=== PATIENT | female | born 1960 | race Caucasian/White ===

== ENCOUNTER 2020-02-11 03:39 | Inpatient (IN) | payer BC, OTHER, SELFPAY ==
[~2020-02-11] VITALS: Ht 182.9 cm; Wt 126.5 kg
[2020-02-11] MEDS ORDERED: DEXTROSE 50% 50 ML SYRINGE IV PRN (04:15)
[2020-02-11] MEDS ORDERED: GLUCAGON INJ 1MG VIAL SC PRN (04:15)
[2020-02-11] MEDS ORDERED: GLUCOSE 4GM CHEW TABLET PO PRN (04:15)
[2020-02-11 08:30] VITALS: BP 171/78
[2020-02-11] MEDS ORDERED: LEVEMIR (INSULIN DETEMIR) 1 UNITS/0.01ML SC SCH (09:00)
[2020-02-11 10:05] LABS: BASO % 0.3 % (0.0-1.0); HEMATOCRIT 38.9 % (36.0-47.0); HEMOGLOBIN 12.2 g/dl (12.0-15.5); LYMPH # 0.3 10^3/uL (1.5-5.0); LYMPH % 7.9 % (24.0-44.0); MEAN CORPUSCULAR HEMOGLOBIN 25.5 pg (27.0-33.0); MEAN CORPUSCULAR HGB CONC 31.4 g/dl (32.0-36.5); MEAN CORPUSCULAR VOLUME 81.2 fl (80.0-96.0); MONO # 0.1 10^3/uL (0.0-0.8); MONO % 3.5 % (0.0-5.0); NEUTROPHILS # 2.8 10^3/uL (1.5-8.5); NEUTROPHILS % 87.7 % (36.0-66.0); PLATELET COUNT, AUTOMATED 214 10^3/uL (150-450); RED BLOOD COUNT 4.79 10^6/uL (4.00-5.40); WHITE BLOOD COUNT 3.2 10^3/uL (4.0-10.0)
[2020-02-11 10:19] LABS: INR 1.04; PROTHROMBIN TIME 13.8 SECONDS (12.5-14.3)
[2020-02-11 10:20] LABS: PARTIAL THROMBOPLASTIN TIME 27.9 SECONDS (24.2-38.5)
[2020-02-11 10:23] LABS: D-DIMER QUANT 1798.29 ng/ml (<500)
[2020-02-11] MEDS ORDERED: PRED20TA PO (10:32)
[2020-02-11] MEDS ORDERED: DIOV160T6 PO (10:32)
[2020-02-11] MEDS ORDERED: METF10004 PO (10:32)
[2020-02-11] MEDS ORDERED: FURO20TA2 PO (10:32)
[2020-02-11] MEDS ORDERED: PANT40TA29 PO (10:32)
[2020-02-11] MEDS ORDERED: AMIT100TA PO (10:32)
[2020-02-11] MEDS ORDERED: TOUJ1.2I SC (10:32)
[2020-02-11] MEDS ORDERED: TRUL0.5I SC (10:32)
[2020-02-11] MEDS ORDERED: LOSA100T50 PO (11:19)
[2020-02-11] MEDS ORDERED: PRED10TA2 PO (11:19)
[2020-02-11] MEDS ORDERED: FURO40TA2 PO (11:19)
[2020-02-11] MEDS ORDERED: AMIT75TA PO (11:19)
[2020-02-11] MEDS: HumaLOG INSULIN (NovoLOG) PER UNIT SC SCH ×4 (11:44→21:13)
[2020-02-11 12:00] VITALS: BP 171/80
[2020-02-11] MEDS ORDERED: DOXYCYCLINE HYCLATE 100 MG in D5W MINI-BAG PLUS 100 ML IV SCH (12:00)
[2020-02-11 12:19] LABS: APPEARANCE, URINE CLEAR (CLEAR); BACTERIA, URINE AUTO NEGATIVE (NEGATIVE); BILIRUBIN, URINE AUTO NEGATIVE (NEGATIVE); BLOOD, URINE BLOOD NEGATIVE (NEGATIVE); COLOR, URINE YELLOW (YELLOW); GLUCOSE, URINE (UA) AUTO 3+ mg/dL (NEGATIVE); KETONE, URINE AUTO 2+ mg/dL (NEGATIVE); LEUKOCYTE ESTERASE, URINE AUTO NEGATIVE (NEGATIVE); NITRITE, URINE AUTO NEGATIVE (NEGATIVE); PROTEIN, URINE AUTO NEGATIVE (NEGATIVE); RBC, URINE AUTO 0 /HPF (0-3); SPECIFIC GRAVITY URINE AUTO 1.036 (1.002-1.035); SQUAMOUS EPITHELIAL CELL UR AU 2 /HPF (0-6); UROBILINOGEN, URINE AUTO 0.2 mg/dL (0.0-2.0); WBC, URINE AUTO 4 /HPF (0-3)
[2020-02-11 13:01] LABS: ALBUMIN 2.7 GM/DL (3.2-5.2); ALT/SGPT 23 U/L (12-78); BILIRUBIN,DIRECT 0.2 MG/DL (0.0-0.2); BILIRUBIN,TOTAL 0.5 MG/DL (0.2-1.0); BLOOD UREA NITROGEN 12 MG/DL (7-18); CALCIUM LEVEL 7.7 MG/DL (8.8-10.2); CARBON DIOXIDE LEVEL 21 MEQ/L (21-32); CHLORIDE LEVEL 105 MEQ/L (98-107); CK-MB VALUE MASS < 1.0 NG/ML (<3.6); CPK CREATINE PHOSPHOKINASE 48 U/L (26-192); CREATININE FOR GFR 0.76 MG/DL (0.55-1.30); FERRITIN 177 NG/ML (8-252); GLOMERULAR FILTRATION RATE > 60.0 (>45); GLUCOSE, FASTING 402 MG/DL (70-100); LDH LACTATE DEHYDROGENASE 490 U/L (84-246); MAGNESIUM LEVEL 1.9 MG/DL (1.8-2.4); MB/CK RELATIVE INDEX 2.08 (< OR =4); NT-PRO BNP 412 PG/ML (<125); POTASSIUM SERUM 3.3 MEQ/L (3.5-5.1); SODIUM LEVEL 140 MEQ/L (136-145); TOTAL PROTEIN 6.2 GM/DL (6.4-8.2); TRIGLYCERIDES LEVEL 148 MG/DL (<150); TROPONIN I < 0.02 NG/ML (< 0.10)
[2020-02-11] MEDS: ENOXAPARIN 40MG/0.4ML SYRINGE (J1650 PER 10MG) SC SCH (13:24)
[2020-02-11] MEDS: LOSARTAN 50MG TABLET PO SCH (13:26)
[2020-02-11] MEDS: PANTOPRAZOLE 40MG TAB (PROTONIX) PO SCH (13:26)
[2020-02-11] MEDS ORDERED: SODIUM CHLORIDE 0.9% INJ 10 ML SYR IV ONE (15:00)
--- NOTE | 2020-02-11 15:05 | HPEPDOC ---
General Date of Admission Feb 11, 2020 at 08:30 Date of Service: Feb 11, 2020 Attending Physician: VIDYA HAMMER DO Chief Complaint The patient is a 59-year-old female admitted with a reason for visit of Covid 19. History of Present Illness Mrs. Rojas is a 59-year-old female with diabetes mellitus type 2, systolic CHF, and history of pulmonary embolus in 2019 who is here for worsening dyspnea and found to have COVID pneumonia. 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 She was initially negative on 02/01/2020. She is tested positive for COVID on 02/04/2020 and on 02/08/2020. First time she tested positive, chest x-ray demonstrated ground glass infiltrates. She self isolated. The second time she tested positive, she returned to the ED for worsening dyspnea. CT of the chest demonstrated ground glass infiltrates bilaterally and she was hypoxic requiring 5 L of oxygen to maintain saturations above 90%. She was transferred to [facility], [place] While here, she required Vapotherm. She tells me she still dyspneic. Denies fever, abdominal pain, diarrhea, or dysuria. Home Medications Scheduled Amitriptyline HCl (Amitriptyline HCl) 75 Mg Tablet, 150 MG PO QHS, (Reported) Furosemide (Furosemide) 40 Mg Tablet, 40 MG PO DAILY, (Reported) Insulin Glargine,Hum.rec.anlog (Toujeo Solostar) 300 Unit/1 Ml Insuln.pen, 40 UNIT SC BID, (Reported) GETS SAMPLES FROM HER PCP, NOT FILLED AT [facility] Losartan Potassium (Losartan Potassium) 100 Mg Tablet, 100 MG PO DAILY, (Reported) Metformin HCl (Metformin HCl) 1,000 Mg Tablet, 1,000 MG PO DAILY, (Reported) SUPPER Pantoprazole Sodium (Pantoprazole Sodium) 40 Mg Tablet.dr, 40 MG PO DAILY, (Reported) Prednisone (Prednisone) 10 Mg Tablet, 10 MG PO DAILY, (Reported) Allergies Coded Allergies: No Known Allergies (Verified Allergy, Unknown, 02/11/20) Past Medical History Medical History 1. Systolic CHF 2. Hypertension 3. Dyslipidemia 4. Insulin-dependent diabetes mellitus type 2 5. History of pulmonary embolism 6. Depression 7. GERD Surgical History 1. Cholecystectomy 2. Appendectomy 3. Breast biopsy and lumpectomy 4. 3 5. Skin cancer removal 6. Left tib/fib ORIF Family History Mother: History of coronary disease Social History * Smoker: Denies Alcohol: Denies Drugs: denies A-FIB/CHADSVASC A-FIB History Current/History of A-Fib/PAF?: No Review of Systems Constitutional: Denies: Chills, Fever Eyes: Denies: Vision change ENT: Denies: Sore Throat Skin: Denies: Rash Pulmonary: Reports: Dyspnea Cardiovascular: Denies: Lt Headedness Gastrointestinal: Denies: Abdominal Pain, Diarrhea Genitourinary: Denies: Dysuria Hematologic: Denies: Bruising Neurological: Denies: Change in speech Physical Examination General Exam: Positive: Alert, Cooperative Eye Exam: Positive: EOMI; Negative: Sclera icteric ENT Exam: Positive: Atraumatic Neck Exam: Positive: Supple Chest Exam: Positive: Diminished Heart Exam: Positive: Rate Normal, Regular Rhythm Abdomen Exam: Positive: Normal bowel sounds, Soft; Negative: Tenderness Extremity Exam: Negative: Edema Neuro Exam: Positive: Cranial Nerves 3-12 NL Psych Exam: Positive: Mental status NL, Mood NL Vital Signs Vital Signs Date Time Temp Pulse Resp B/P (MAP) Pulse Ox O2 Delivery O2 Flow Rate FiO2 02/11/20 12:00 98.0 93 27 171/80 (110) 91 HVNI-Vapotherm 35.0 50 Laboratory Data Labs 24H Laboratory Tests 2 02/11/20 09:35: Immature Granulocyte % (Auto) 0.6, Neutrophils (%) (Auto) 87.7H, Lymphocytes (%) (Auto) 7.9L, Monocytes (%) (Auto) 3.5, Eosinophils (%) (Auto) 0.0, Basophils (%) (Auto) 0.3, Neutrophils # (Auto) 2.8, Lymphocytes # (Auto) 0.3L, Monocytes # (Auto) 0.1, Eosinophils # (Auto) 0.0, Basophils # (Auto) 0.0, Nucleated Red Blood Cells % (auto) 0.0, Prothrombin Time 13.8, Prothromb Time International Ratio 1.04, Activated Partial Thromboplast Time 27.9, Fibrinogen 667H, D-Dimer, Quantitative 1798.29H, Anion Gap 14, Glomerular Filtration Rate > 60.0, Calcium Level 7.7L, Magnesium Level 1.9, Ferritin 177, Total Bilirubin 0.5, Direct Bilirubin 0.2, Aspartate Amino Transf (AST/SGOT) 30, Alanine Aminotransferase (ALT/SGPT) 23, Alkaline Phosphatase 87, Lactate Dehydrogenase 490H, Total Creatine Kinase 48, Creatine Kinase MB < 1.0, Creatine Kinase MB Relative Index 2.08, Troponin I < 0.02, C-Reactive Protein, Quantitative 14.50H, IB-Vrp-A-Type Natriuretic Peptide 412H, Total Protein 6.2L, Albumin 2.7L, Albumin/Globulin Ratio 0.8L, Triglycerides Level 148 02/11/20 09:36: Lactic Acid Level 1.6 02/11/20 11:39: Bedside Glucose (Misc Panel) 373H 02/11/20 12:06: Urine Color YELLOW, Urine Appearance CLEAR, Urine pH 6.0, Urine Specific [place] 1.036, Urine Protein NEGATIVE, Urine Glucose (Auto)(UA) 3+H, Urine Ketones (Auto) 2+H, Urine Blood NEGATIVE, Urine Nitrite NEGATIVE, Urine Bilirubin NEGATIVE, Urine Urobilinogen 0.2, Urine Leukocyte Esterase (Auto) NEGATIVE, Urine WBC (Auto) 4H, Urine RBC (Auto) 0, Urine Hyaline Casts (Auto) 0, Urine Bacteria (Auto) NEGATIVE, Urine Squamous Epithelial Cells 2, Urine Sperm (Auto) CBC/BMP Laboratory Tests 02/11/20 09:35 Assessment/Plan Mrs. Rojas is a 59-year-old female with diabetes mellitus type 2, systolic CHF, and history of pulmonary embolus in 2019 who is here for worsening dyspnea and found to have COVID pneumonia. On arrival, her oxygen requirements increased from 5L O2 to Vapotherm. She will be on IV steroids, Remdesivir, and doxycycline. She will be given Ceftriaxone to cover for bacterial pneumonia, but if procalcitonin is negative, we will discontinue it. Plan / VTE VTE Prophylaxis Ordered?: Yes Plan Plan 1. Acute hypoxic respiratory failure Secondary to COVID pneumonia Initially positive on 02/04/2020 Requiring Vapotherm at this time Continue to follow infiltrate markers space (ESR, CRP, ferritin, LDH, f ibrinogen, d-dimer) Check pro-calcitonin Continue with dexamethasone, doxycycline, and Remdesivir 2. Chronic systolic CHF Does not appear to be fluid overloaded Hold furosemide 3. Hypertension Blood pressure elevated. She has not taken her blood pressure medication today Continue losartan 4. Insulin-dependent diabetes mellitus type 2 Carbohydrate consistent diet and insulin sliding scale Adjust long acting insulin from 40 units twice a day to 20 units twice a day. Increase as needed 5. Depression Continue with amitriptyline 6. GERD Continue with pantoprazole 7. DVT prophylaxis Lovenox Disposition: Pending improvement in respiratory status. Currently on Vapotherm VIDYA HAMMER DO Feb 11, 2020 15:05
[2020-02-11 16:00] VITALS: BP 162/78
[2020-02-11 16:12] LABS: ABG HCO3 21.7 MEQ/L (22.0-26.0); ABG O2 SATURATION 94.2 % (95.0-99.0); ABG PARTIAL PRESSURE CO2 29.9 mmHg (35.0-45.0); ABG PARTIAL PRESSURE O2 64.9 mmHg (75.0-100.0); ABG STANDARD HCO3 23.6 MEQ/L (22.0-26.0); ABG TOTAL CO2 22.6 MEQ/L (23.0-31.0); ABG pH (ARTERIAL) 7.478 UNITS (7.350-7.450)
[2020-02-11] MEDS ORDERED: ISOVUE-370 76% 100ML VIAL As Ordered ONE (18:13)
--- NOTE | 2020-02-11 20:45 | REPVR ---
PROCEDURE INFORMATION: Exam: CT Angiography Chest With Contrast Exam date and time: 02/11/2020 7:46 PM Age: 59 years old Clinical indication: Hypoxia, hypercoagulable, history of PE last year TECHNIQUE: Imaging protocol: Computed tomographic angiography of the chest with intravenous contrast. 3D rendering (Not supervised by radiologist): MIP and/or 3D reconstructed images were created by the technologist. Radiation optimization: All CT scans at this facility use at least one of these dose optimization techniques: automated exposure control; mA and/or kV adjustment per patient size (includes targeted exams where dose is matched to clinical indication); or iterative reconstruction. Contrast material: ISOVUE 370; Contrast volume: 75 ml; Contrast route: INTRAVENOUS (IV); COMPARISON: No relevant prior studies available. FINDINGS: Limitations: Respiratory motion artifact degrades the image quality. Pulmonary arteries: There is no pulmonary embolism in the main, lobar, or segmental pulmonary arteries. There is suboptimal for the assessment of the subsegmental pulmonary arteries, which are degraded by respiratory motion artifact. Aorta: The thoracic aorta is intact and patent. There is no thoracic aortic aneurysm, pseudoaneurysm, penetrating atherosclerotic ulcer, intramural hematoma, or dissection. Great vessels off aortic arch: The brachiocephalic artery, imaged proximal portions of the common carotid arteries, imaged proximal portions of the vertebral arteries, and subclavian arteries are intact. No stenosis or occlusion of these vessels is noted. Thyroid: There is a 1.5 cm heterogeneous solid nodule containing a calcification in the mid to lower pole of the right lobe of the thyroid gland and a 1.8 cm cystic nodule in the mid to lower pole of the left lobe of the thyroid gland. No enlargement of the thyroid gland is noted. Tracheobronchial tree: Intact and patent. Lungs: There are diffuse ground-glass opacities with superimposed consolidation and intralobular septal thickening (?crazy-paving?) in both lungs. No cavitary lesion is noted. There is a 6 mm calcified granuloma in the right lower lobe. Pleural space: Normal. No pneumothorax or pleural effusion. Heart: The left atrium is dilated. The ratio of the diameter of the right ventricle to the diameter of the left ventricle measures less than 1, which is within normal limits and there is no CT evidence for a right ventricular strain. Lymph nodes: There are subcentimeter mediastinal lymph nodes. However, no abnormally enlarged lymph nodes measuring greater than 1 cm in short axis are noted. Liver: There are calcified granulomas in the liver. The liver is of lower attenuation compared to the spleen, which can be seen with fatty liver infiltration. The liver was not fully imaged. Spleen: There are calcified granulomas in the spleen. The spleen was not fully imaged. Stomach and bowel: Postoperative changes are noted from a gastric bypass surgery. Bones/joints: There is no fracture or dislocation. No suspicious osteolytic or osteoblastic lesion. There are degenerative changes involving the thoracic spine. There is severe osteoarthritis of both glenohumeral joints. There are several ossified bodies in the left subcoracoid recess. Soft tissues: Unremarkable. No soft tissue fluid collection. IMPRESSION: 1. No pulmonary embolism in the main, lobar, or segmental pulmonary arteries. There is suboptimal for the assessment of the subsegmental pulmonary arteries, which are degraded by respiratory motion artifact. 2. Diffuse ground-glass opacities with superimposed consolidation and intralobular septal thickening (?crazy-paving?) in both lungs. Imaging features can be seen with COVID-19 pneumonia, though are nonspecific and can occur with a variety of infectious and noninfectious processes. (Reference: Nasim) 3. Thyroid nodules measuring up to 1.8 cm. See management guidelines below. COMMENTS: Consistent with the [place] [employer]'s Incidental Findings Committee white paper (J Am David Radiol 2015): In patients aged 35 years and older with an incidental thyroid nodule equal to or greater than 1.[address], MRI or extrathyroidal US, further evaluation with dedicated thyroid US is recommended for patients with normal life expectancy and without comorbidities. For smaller nodules without suspicious features, no further evaluation or follow up is recommended. REFERENCES: Nasim Corrales et al., Radiological Society of [place] Expert Consensus Statement on Reporting Chest CT Findings Related to COVID-19. Endorsed by the Society of Thoracic Radiology, the [place] [employer], and RSNA. Published June 01, 2019. Electronically signed by: Shar Marroquin On 02/11/2020 20:46:05 PM
[2020-02-11 21:05] VITALS: BP 154/62
[2020-02-11] MEDS: AMITRIPTYLINE 50 MG TAB PO SCH (21:11)
[2020-02-11] MEDS: DOXYCYCLINE HYCLATE 100MG TABLET PO SCH (21:11)
[2020-02-11] MEDS: LEVEMIR (INSULIN DETEMIR) 1 UNITS/0.01ML SC SCH (21:12)
[2020-02-12] VITALS: BP 152/69
[2020-02-12] MEDS: dexameTHASONE 4 MG/ML 1ML VIAL (J1100 PER 1MG) IV SCH ×2 (00:52→23:53)
[2020-02-12] MEDS: cefTRIAXone SOD 1 GM in D5W MINI-BAG PLUS 50 ML IV SCH ×2 (00:54→23:53)
[2020-02-12 04:00] VITALS: BP 156/77
[2020-02-12 06:28] LABS: HEMATOCRIT 37.5 % (36.0-47.0); HEMOGLOBIN 11.7 g/dl (12.0-15.5); LYMPH # 0.5 10^3/uL (1.5-5.0); MEAN CORPUSCULAR HEMOGLOBIN 25.3 pg (27.0-33.0); MEAN CORPUSCULAR HGB CONC 31.2 g/dl (32.0-36.5); MEAN CORPUSCULAR VOLUME 81.2 fl (80.0-96.0); MONO # 0.2 10^3/uL (0.0-0.8); MONO % 3.6 % (0.0-5.0); NEUTROPHILS # 5.9 10^3/uL (1.5-8.5); NEUTROPHILS % 89.1 % (36.0-66.0); PLATELET COUNT, AUTOMATED 218 10^3/uL (150-450); RED BLOOD COUNT 4.62 10^6/uL (4.00-5.40); WHITE BLOOD COUNT 6.6 10^3/uL (4.0-10.0)
[2020-02-12 06:44] LABS: INR 1.04; PROTHROMBIN TIME 13.8 SECONDS (12.5-14.3)
[2020-02-12 06:45] LABS: PARTIAL THROMBOPLASTIN TIME 25.7 SECONDS (24.2-38.5)
[2020-02-12 07:01] LABS: ALBUMIN 2.5 GM/DL (3.2-5.2); ALT/SGPT 23 U/L (12-78); BILIRUBIN,DIRECT 0.2 MG/DL (0.0-0.2); BILIRUBIN,TOTAL 0.3 MG/DL (0.2-1.0); BLOOD UREA NITROGEN 19 MG/DL (7-18); CALCIUM LEVEL 7.6 MG/DL (8.8-10.2); CARBON DIOXIDE LEVEL 27 MEQ/L (21-32); CHLORIDE LEVEL 107 MEQ/L (98-107); FERRITIN 183 NG/ML (8-252); GLOMERULAR FILTRATION RATE > 60.0 (>45); GLUCOSE, FASTING 263 MG/DL (70-100); MAGNESIUM LEVEL 2.1 MG/DL (1.8-2.4); POTASSIUM SERUM 3.3 MEQ/L (3.5-5.1); SODIUM LEVEL 142 MEQ/L (136-145); TOTAL PROTEIN 5.7 GM/DL (6.4-8.2); TROPONIN I 0.02 NG/ML (< 0.10)
[2020-02-12 08:00] VITALS: BP 169/72
[2020-02-12] MEDS ORDERED: POTASSIUM CHLORIDE 10 MEQ SR TABLET PO ONE (09:00)
[2020-02-12] MEDS: HumaLOG INSULIN (NovoLOG) PER UNIT SC SCH ×4 (09:37→20:34)
[2020-02-12] MEDS: DOXYCYCLINE HYCLATE 100MG TABLET PO SCH ×2 (09:37→20:35)
[2020-02-12] MEDS: PANTOPRAZOLE 40MG TAB (PROTONIX) PO SCH (09:37)
[2020-02-12] MEDS: LEVEMIR (INSULIN DETEMIR) 1 UNITS/0.01ML SC SCH ×2 (09:37→20:34)
[2020-02-12] MEDS: ENOXAPARIN 40MG/0.4ML SYRINGE (J1650 PER 10MG) SC SCH (09:38)
[2020-02-12] MEDS: LOSARTAN 50MG TABLET PO SCH (09:38)
[2020-02-12] MEDS ORDERED: ALBUTEROL 90 MCG/ACT 8GM HFA INHALER INH PRN (10:15)
[2020-02-12 12:00] VITALS: BP 169/72
--- NOTE | 2020-02-12 12:22 | CR ---
CONSULTATION Telemedicine consult. CHIEF COMPLAINT: Dyspnea. HISTORY OF PRESENT ILLNESS: Miss Rojas is a 59-year-old female with a past medical history of diabetes, CHF, hypertension, hyperlipidemia, previous history of PE in 2019 who presented with complaints of worsening shortness of breath and dyspnea. History of was obtained from the chart and other collateral information. The patient works as an RN at [employer] and had previously been tested for COVID 19 multiple times. She was negative when tested on 02/01/2020 and then on 02/04/2020 was found to be COVID positive as well as when tested again on 02/08/2020. After her first positive test in the end of January, the patient reportedly had a chest x-ray which showed ground glass opacities. She was self-isolating. However, a few days later, she had worsening shortness of breath and presented to the ED where she was tested a second time and was found to still be positive. Her CT at that time showed evidence of ground-glass opacities bilaterally and she was hypoxic requiring five liters nasal cannula oxygen supplementation. She was therefore transferred to [facility] for further evaluation and treatment. Here, the patient has continued to have significant hypoxia and was placed on Vapotherm for high flow nasal cannula oxygen. She was also started on dexamethasone and remdesivir during her admission. The patient was also given initial antibiotics for a possible superimposed pneumonia with ceftriaxone as well as doxycycline. MEDICAL AND SURGICAL HISTORY: 1. CHF. 2. Hypertension. 3. Hyperlipidemia. 4. Insulin dependent diabetes. 5. Prior history of PE in 2019. 6. Depression. 7. GERD. 8. Cholecystectomy. 9. Appendectomy. 10. Breast biopsy. 11. Lumpectomy. 12. section. 13. Skin cancer removal,. 14. Left tib/fib ORIF. FAMILY HISTORY: Mother with history of coronary artery disease. SOCIAL HISTORY: She denies previous history of smoking, alcohol or other drug use. HOME MEDICATIONS: 1. Amitriptyline. 2. Furosemide. 3. Insulin. 4. Losartan. 5. Metformin. 6. Pantoprazole. 7. Prednisone 10 mg daily. VITALS: Temperature 98, pulse 90, respirations 22, blood pressure 109/72. O2 sat 98 to 93% on Vapotherm at 40 liters a minute with 85% FiO2, in 910 mL, out 800 mL. LABORATORY DATA: WBC 6.6, hemoglobin 11.7, platelets of 218. Chemistries: Sodium is 142. Potassium is 3.3. Chloride is 107. Bicarb is 27, BUN 19. Creatinine is 0.70. Glucose is 263. Lactic acid initially was 1.6. Calcium is 7.6. Ferritin is 183.AST, ALT within normal limits. All phos is within normal limits. Troponins are negative x3. BNP on admission 412, albumin 2.5. D-dimer on admission 1798 and INR is 1.04, fibrinogen 67. ABG on admission: pH 7.478, pCO2 of 29.9, pO2 of 64.9. IMAGING: CT angio on 02/11/20 showed no evidence of pulmonary embolism in the main pulmonary arteries. There is significant respiratory motion and suboptimal evaluation of the subsegmental pulmonary arteries. The pulmonary artery appears enlarged compared to the aorta and while the right ventricle to left ventricle size does not show dilation, there appears to be some possible finding of the intraventricular septum. There is cardiomegaly. In the lung alvarez, there are diffuse ground-glass as well as denser consolidations bilaterally with intralobular septal thickening and this wrapped along in both the upper, mid and lower lobes. There is a granuloma in the right lower lobe. There are no significantly enlarged mediastinal lymph nodes. There are granulomas in the liver and the liver contour appears somewhat nodular on my review. There are granulomas in the spleen consistent with previous granulomatous disease. There is also incidentally noted thyroid nodule. ASSESSMENT AND PLAN: Miss Rojas is a 59-year-old female with a past medical history of hypertension, hyperlipidemia, diabetes, CHF, previous history of PE, who presents with worsening shortness of breath and dyspnea in the setting of COVID pneumonia. The patient's imaging findings with ground-glass as well as denser consolidations and intralobular septal thickening which can be consistent with COVID pneumonia although there is also a possibility of some component of pulmonary edema as well given her history. She also has acute hypoxemic respiratory failure and has been requiring significant oxygen supplementation with high flow nasal cannula oxygen with a Vapotherm to maintain her sats. The patient will be continued on Vapotherm and will continue to wean down her FiO2 and flow rate as tolerated to maintain an O2 sat above 90%. The patient does have morbid obesity and given her previous history of PE as well as with the suboptimal evaluation of the subsegmental pulmonary artery, would increase her to weight-based prophylaxis at 0.5 mg b.i.d. Would also continue to trend D-dimer and if increasing, would change to empiric anticoagulation for VTE Would continue with dexamethasone 6 mg IV daily for a ten day course given her hypoxic respiratory failure and COVID pneumonia. Would continue remdesivir and would also continue for a ten day course given the degree of her hypoxemia. Monitor LFTs for transaminitis Would start patient on awake pronation with one hour prone and two hours supine during the day as tolerated for around 6-8 pronation sessions a day if tolerated while awake. Would also continue with incentive spirometer and can start albuterol HFA for a bronchodilator. Patient has a history of CHF. Her BNP was only mildly elevated. She does have evidence of dilated pulmonary artery and suspect she does have a history of pulmonary hypertension as well chronically. Her Lasix has been on hold. However, would consider restarting p.o. Lasix at her home dose with close monitoring of her renal function and volume status as she is at risk for fluid overload which could be potentially contributing as well to her hypoxia. Would continue with ceftriaxone and doxycycline with followup of procalcitonin to aid in de-escalation of antibiotics Would continue to monitor her inflammatory markers. Her CRP is elevated but her ferritin has not been significantly elevated. If there is increasing CRP or ferritin and other inflammatory markers, can consider tocilizumab if it appears she is in cytokine storm although she does not appear to have evidence of that currently. GI prophylaxis: Pantoprazole. DVT prophylaxis: Lovenox. Code Status: FULL CODE. Please do not hesitate to call if any further questions or concerns. MTDD
[2020-02-12] MEDS: FUROSEMIDE 40 MG TAB PO SCH (13:12)
--- NOTE | 2020-02-12 13:43 | ECGEPIP ---
[facility] Test Date: 2020-02-11 Pat Name: TRACY HUMMEL Department: Room: [place] [address] Gender: Female [employer] Family [employer] Specialist: MISTY : 1960 Requested By: TE FUNEZ Order Number: [id number] Reading MD: Dequan Villalpando Measurements Intervals [place] Rate: 93 P: 49 ID: [id number] QRS: -30 QRSD: 110 T: 82 QT: 391 QTc: 487 Interpretive Statements Normal sinus rhythm with PACs Left anterior fascicular block Delayed anterior R-wave progression suspicious for prior anterior wall myocardial i infarction Nonspecific repolarization abnormalities Comparison tracing not available Electronically Signed on 02-12-2020 13:43:27 EST by Dequan Villalpando
[2020-02-12] MEDS: ACETAMINOPHEN TAB 650MG DOSE (2X325MG) PO PRN (15:36)
[2020-02-12 16:00] VITALS: BP 158/75
[2020-02-12] MEDS: ENOXAPARIN 80MG/0.8ML SYRINGE (J1650 PER 10MG) SC SCH (17:11)
[2020-02-12] MEDS: SODIUM CHLORIDE 0.9% INJ 10 ML SYR IV SCH (17:12)
--- NOTE | 2020-02-12 20:22 | IPNPDOC ---
Subjective Date Seen The patient was seen on 02/12/20. Subjective Chief Complaint/HPI Mrs. Rojas is a 59-year-old female with diabetes mellitus type 2, systolic CHF, and history of pulmonary embolus in 2019 who is here for worsening dyspnea and found to have COVID pneumonia. This morning, dyspnea was still present, but denies fever, abdominal pain, or dysuria. Objective Physical Examination General Exam: Positive: Alert, Cooperative Eye Exam: Positive: EOMI; Negative: Sclera icteric ENT Exam: Positive: Atraumatic Neck Exam: Positive: Supple Chest Exam: Positive: Diminished Heart Exam: Positive: Rate Normal, Regular Rhythm Abdomen Exam: Positive: Normal bowel sounds, Soft; Negative: Tenderness Extremity Exam: Negative: Edema Neuro Exam: Positive: Cranial Nerves 3-12 NL Psych Exam: Positive: Mental status NL, Mood NL Assessment /Plan Assessment Mrs. Rojas is a 59-year-old female with diabetes mellitus type 2, systolic CHF, and history of pulmonary embolus in 2019 who is here for worsening dyspnea and found to have COVID pneumonia. On arrival, her oxygen requirements increased from 5L O2 to Vapotherm. She will be on IV steroids, Remdesivir, and doxycycline. She will be given Ceftriaxone to cover for bacterial pneumonia. Will trend procalcitonin to determine if Ceftriaxone is to be continued. We will also need to trend the D-dimer. Although CTA was negative, it was a poor study and PE can still be missed. She is at higher risk for PE. If hypoxia worsens and D-dimer climbs, she may need to be on full dose lovenox (1mg/kg BID) Plan/VTE VTE Prophylaxis Ordered?: Yes Plan 1. Acute hypoxic respiratory failure Secondary to COVID pneumonia Initially positive on 02/04/2020 Requiring Vapotherm at this time Continue to follow infiltrate markers space (ESR, CRP, ferritin, LDH, fibrinogen, d-dimer) Check pro-calcitonin Continue with dexamethasone, doxycycline, and Remdesivir -Active proning and incentive spirometer ordered -Albuterol as needed for dyspnea 2. Chronic systolic CHF Continue PO Lasix -Monitor renal function 3. Hypertension Blood pressure elevated. She has not taken her blood pressure medication today Continue losartan 4. Insulin-dependent diabetes mellitus type 2 Carbohydrate consistent diet and insulin sliding scale Adjust long acting insulin from 40 units twice a day to 20 units twice a day. Increase as needed 5. Depression Continue with amitriptyline 6. GERD Continue with pantoprazole 7. DVT prophylaxis Lovenox Disposition: Pending improvement in respiratory status. Currently on Vapotherm VS, I&O, 24H, Fishbone Vital Signs/I&O Vital Signs Date Time Temp Pulse Resp B/P (MAP) Pulse Ox O2 Delivery O2 Flow Rate FiO2 02/12/20 16:00 99.1 93 26 158/75 (102) 95 HVNI-Vapotherm 20.0 75 I&O- Last 24 Hours up to 6 AM 02/12/20 06:00 Intake Total 1210 ml Output Total 800 ml Balance 410 ml Laboratory Data 24H LABS Laboratory Tests 2 02/11/20 20:51: Bedside Glucose (Misc Panel) 284H 02/11/20 22:49: Troponin I 0.02 02/12/20 06:12: Troponin I 0.02, Immature Granulocyte % (Auto) 0.3, Neutrophils (%) (Auto) 89.1H, Lymphocytes (%) (Auto) 7.0L, Monocytes (%) (Auto) 3.6, Eosinophils (%) (Auto) 0.0, Basophils (%) (Auto) 0.0, Neutrophils # (Auto) 5.9, Lymphocytes # (Auto) 0.5L, Monocytes # (Auto) 0.2, Eosinophils # (Auto) 0.0, Basophils # (Auto) 0.0, Nucleated Red Blood Cells % (auto) 0.0, Prothrombin Time 13.8, Prothromb Time International Ratio 1.04, Activated Partial Thromboplast Time 25.7, Fibrinogen 593H, Anion Gap 8, Glomerular Filtration Rate > 60.0, Calcium Level 7.6L, Magnesium Level 2.1, Ferritin 183, Total Bilirubin 0.3, Direct Bilirubin 0.2, Aspartate Amino Transf (AST/SGOT) 31, Alanine Aminotransferase (ALT/SGPT) 23, Alkaline Phosphatase 79, Ammonia 14, Total Protein 5.7L, Albumin 2.5L, Albumin/Globulin Ratio 0.8L 02/12/20 11:47: Bedside Glucose (Misc Panel) 342H 02/12/20 16:44: Bedside Glucose (Misc Panel) 354H CBC/BMP Laboratory Tests 02/12/20 06:12 VIDYA HAMMER DO Feb 12, 2020 20:22
[2020-02-12] MEDS: AMITRIPTYLINE 50 MG TAB PO SCH (20:35)
[2020-02-12 20:45] VITALS: BP 174/92
[2020-02-12] MEDS: LABETALOL 100MG/20ML VIAL IV SCH (21:11)
[2020-02-13] VITALS (30 sets, daily range): BP systolic 125–179; BP diastolic 56–90; O2SAT 86–99
[2020-02-13] MEDS: LABETALOL 100MG/20ML VIAL IV SCH ×4 (03:00→21:03)
[2020-02-13] MEDS: ENOXAPARIN 80MG/0.8ML SYRINGE (J1650 PER 10MG) SC SCH ×2 (06:04→18:04)
[2020-02-13 06:59] LABS: BASO % 0.2 % (0.0-1.0); HEMATOCRIT 38.7 % (36.0-47.0); LYMPH # 0.4 10^3/uL (1.5-5.0); LYMPH % 6.7 % (24.0-44.0); MEAN CORPUSCULAR HEMOGLOBIN 25.5 pg (27.0-33.0); MEAN CORPUSCULAR VOLUME 82.2 fl (80.0-96.0); MONO # 0.2 10^3/uL (0.0-0.8); MONO % 3.4 % (0.0-5.0); NEUTROPHILS # 5.4 10^3/uL (1.5-8.5); NEUTROPHILS % 88.9 % (36.0-66.0); PLATELET COUNT, AUTOMATED 239 10^3/uL (150-450); RED BLOOD COUNT 4.71 10^6/uL (4.00-5.40); WHITE BLOOD COUNT 6.1 10^3/uL (4.0-10.0)
[2020-02-13 07:10] LABS: INR 1.12; PROTHROMBIN TIME 14.6 SECONDS (12.5-14.3)
[2020-02-13 07:11] LABS: PARTIAL THROMBOPLASTIN TIME 28.2 SECONDS (24.2-38.5)
[2020-02-13 07:14] LABS: D-DIMER QUANT 970.53 ng/ml (<500)
[2020-02-13 07:32] LABS: ALBUMIN 2.7 GM/DL (3.2-5.2); ALT/SGPT 26 U/L (12-78); BILIRUBIN,DIRECT 0.2 MG/DL (0.0-0.2); BILIRUBIN,TOTAL 0.4 MG/DL (0.2-1.0); BLOOD UREA NITROGEN 23 MG/DL (7-18); CALCIUM LEVEL 7.8 MG/DL (8.8-10.2); CARBON DIOXIDE LEVEL 31 MEQ/L (21-32); CHLORIDE LEVEL 106 MEQ/L (98-107); CREATININE FOR GFR 0.75 MG/DL (0.55-1.30); FERRITIN 162 NG/ML (8-252); GLOMERULAR FILTRATION RATE > 60.0 (>45); GLUCOSE, FASTING 281 MG/DL (70-100); MAGNESIUM LEVEL 2.2 MG/DL (1.8-2.4); POTASSIUM SERUM 3.4 MEQ/L (3.5-5.1); SODIUM LEVEL 142 MEQ/L (136-145); TOTAL PROTEIN 6.2 GM/DL (6.4-8.2)
[2020-02-13] MEDS ORDERED: POTASSIUM CHLORIDE 10 MEQ SR TABLET PO ONE (07:45)
[2020-02-13] MEDS: LEVEMIR (INSULIN DETEMIR) 1 UNITS/0.01ML SC SCH ×2 (08:32→21:04)
[2020-02-13] MEDS: HumaLOG INSULIN (NovoLOG) PER UNIT SC SCH ×4 (08:32→21:04)
[2020-02-13] MEDS: DOXYCYCLINE HYCLATE 100MG TABLET PO SCH ×2 (08:33→21:01)
[2020-02-13] MEDS: PANTOPRAZOLE 40MG TAB (PROTONIX) PO SCH (08:33)
[2020-02-13] MEDS: FUROSEMIDE 40 MG TAB PO SCH (08:34)
[2020-02-13] MEDS: LOSARTAN 50MG TABLET PO SCH (08:35)
[2020-02-13 10:24] LABS: HEPATITIS B SURFACE ANTIGEN NEGATIVE (NEGATIVE)
[2020-02-13 10:53] LABS: HIV 1&2 SCREEN CENTAUR NEGATIVE (NEGATIVE)
--- NOTE | 2020-02-13 14:27 | IPNPDOC ---
Subjective Date Seen The patient was seen on 02/13/20. Subjective Chief Complaint/HPI Mrs. Rojas is a 59-year-old female with diabetes mellitus type 2, systolic CHF, and history of pulmonary embolus in 2019 who is here for worsening dyspnea and found to have COVID pneumonia. This morning, she feels about the same. Still has dyspnea, but denies fever, chest pain, abdominal pain, or dysuria. On 20L 60%FiO2 Objective Physical Examination General Exam: Positive: Alert, Cooperative Eye Exam: Positive: EOMI; Negative: Sclera icteric ENT Exam: Positive: Atraumatic Neck Exam: Positive: Supple Chest Exam: Positive: Diminished Heart Exam: Positive: Rate Normal, Regular Rhythm Abdomen Exam: Positive: Normal bowel sounds, Soft; Negative: Tenderness Extremity Exam: Negative: Edema Neuro Exam: Positive: Cranial Nerves 3-12 NL Psych Exam: Positive: Mental status NL, Mood NL Assessment /Plan Assessment Mrs. Rojas is a 59-year-old female with diabetes mellitus type 2, systolic CHF, and history of pulmonary embolus in 2019 who is here for worsening dyspnea and found to have COVID pneumonia. On arrival, her oxygen requirements increased from 5L O2 to Vapotherm. She will be on IV steroids, Remdesivir, and doxycycline. She will be given Ceftriaxone to cover for bacterial pneumonia. Will trend procalcitonin to determine if Ceftriaxone is to be continued. We will also need to trend the D-dimer. Although CTA was negative, it was a poor study and PE can still be missed. She is at higher risk for PE. If hypoxia worsens and D-dimer climbs, she may need to be on full dose lovenox (1mg/kg BID). Currently D-dimer has declined. Oxygen requirement about the same Plan/VTE VTE Prophylaxis Ordered?: Yes Plan 1. Acute hypoxic respiratory failure Secondary to COVID pneumonia Initially positive on 02/04/2020 Requiring Vapotherm at this time Continue to follow infiltrate markers space (ESR, CRP, ferritin, LDH, fibrinogen, d-dimer) Check pro-calcitonin Continue with dexamethasone, doxycycline, and Remdesivir -Active proning and incentive spirometer ordered -Albuterol as needed for dyspnea 2. Chronic systolic CHF Continue PO Lasix -Monitor renal function 3. Hypertension Blood pressure elevated. She has not taken her blood pressure medication today Continue losartan 4. Insulin-dependent diabetes mellitus type 2 Carbohydrate consistent diet and insulin sliding scale Levemir 40 units twice a day 5. Depression Continue with amitriptyline 6. GERD Continue with pantoprazole 7. DVT prophylaxis Lovenox Disposition: Pending improvement in respiratory status. Currently on Vapotherm VS, I&O, 24H, Fishbone Vital Signs/I&O Vital Signs Date Time Temp Pulse Resp B/P (MAP) Pulse Ox O2 Delivery O2 Flow Rate FiO2 02/13/20 12:50 91 HVNI-Vapotherm 20.0 60 02/13/20 12:00 97.6 79 28 147/77 (100) I&O- Last 24 Hours up to 6 AM 02/13/20 05:59 Intake Total 1440 ml Output Total 1600 ml Balance -160 ml Laboratory Data 24H LABS Laboratory Tests 2 02/12/20 16:44: Bedside Glucose (Misc Panel) 354H 02/12/20 20:30: Bedside Glucose (Misc Panel) 269H 02/13/20 06:28: Immature Granulocyte % (Auto) 0.8, Neutrophils (%) (Auto) 88.9H, Lymphocytes (%) (Auto) 6.7L, Monocytes (%) (Auto) 3.4, Eosinophils (%) (Auto) 0.0, Basophils (%) (Auto) 0.2, Neutrophils # (Auto) 5.4, Lymphocytes # (Auto) 0.4L, Monocytes # (Auto) 0.2, Eosinophils # (Auto) 0.0, Basophils # (Auto) 0.0, Nucleated Red Blood Cells % (auto) 0.0, Prothrombin Time 14.6H, Prothromb Time International Ratio 1.12, Activated Partial Thromboplast Time 28.2, Fibrinogen 500H, D-Dimer, Quantitative 970.53H, Anion Gap 5L, Glomerular Filtration Rate > 60.0, Calcium Level 7.8L, Magnesium Level 2.2, Ferritin 162, Total Bilirubin 0.4, Direct Bilirubin 0.2, Aspartate Amino Transf (AST/SGOT) 25, Alanine Aminotransferase (A LT/SGPT) 26, Alkaline Phosphatase 86, C-Reactive Protein, Quantitative 3.76H, Total Protein 6.2L, Albumin 2.7L, Albumin/Globulin Ratio 0.8L 02/13/20 12:21: Bedside Glucose (Misc Panel) 283H CBC/BMP Laboratory Tests 02/13/20 06:28 VIDYA HAMMER DO Feb 13, 2020 14:27
[2020-02-13] MEDS: SODIUM CHLORIDE 0.9% INJ 10 ML SYR IV SCH (15:36)
[2020-02-13] MEDS: amLODIPine 5 MG TAB PO SCH (18:06)
[2020-02-13] MEDS: DOCUSATE SODIUM 100MG CAPSULE PO SCH (21:01)
[2020-02-13] MEDS: AMITRIPTYLINE 50 MG TAB PO SCH (21:02)
[2020-02-13] MEDS: ACETAMINOPHEN TAB 650MG DOSE (2X325MG) PO PRN (21:05)
[2020-02-13] MEDS: cefTRIAXone SOD 1 GM in D5W MINI-BAG PLUS 50 ML IV SCH (23:40)
[2020-02-13] MEDS: dexameTHASONE 4 MG/ML 1ML VIAL (J1100 PER 1MG) IV SCH (23:40)
[2020-02-14] VITALS (16 sets, daily range): BP systolic 128–167; BP diastolic 67–77; O2SAT 90–95
[2020-02-14] MEDS: LABETALOL 100MG/20ML VIAL IV SCH ×4 (03:00→20:17)
[2020-02-14] MEDS: ENOXAPARIN 80MG/0.8ML SYRINGE (J1650 PER 10MG) SC SCH ×2 (05:43→17:22)
[2020-02-14 07:01] LABS: HEMATOCRIT 35.2 % (36.0-47.0); HEMOGLOBIN 11.3 g/dl (12.0-15.5); MEAN CORPUSCULAR HEMOGLOBIN 25.9 pg (27.0-33.0); MEAN CORPUSCULAR HGB CONC 32.1 g/dl (32.0-36.5); MEAN CORPUSCULAR VOLUME 80.5 fl (80.0-96.0); PLATELET COUNT, AUTOMATED 200 10^3/uL (150-450); RED BLOOD COUNT 4.37 10^6/uL (4.00-5.40); WHITE BLOOD COUNT 4.8 10^3/uL (4.0-10.0)
[2020-02-14 07:13] LABS: INR 1.2; PROTHROMBIN TIME 15.5 SECONDS (12.5-14.3)
[2020-02-14 07:16] LABS: D-DIMER QUANT 1040.04 ng/ml (<500)
[2020-02-14 07:32] LABS: ALBUMIN 2.4 GM/DL (3.2-5.2); ALT/SGPT 22 U/L (12-78); BILIRUBIN,DIRECT 0.1 MG/DL (0.0-0.2); BILIRUBIN,TOTAL 0.4 MG/DL (0.2-1.0); BLOOD UREA NITROGEN 24 MG/DL (7-18); C REACTIVE PROTEIN QUANTITATIV 1.96 MG/DL (0.00-0.30); CALCIUM LEVEL 7.5 MG/DL (8.8-10.2); CARBON DIOXIDE LEVEL 28 MEQ/L (21-32); CHLORIDE LEVEL 110 MEQ/L (98-107); CREATININE FOR GFR 0.64 MG/DL (0.55-1.30); FERRITIN 117 NG/ML (8-252); GLOMERULAR FILTRATION RATE > 60.0 (>45); GLUCOSE, FASTING 221 MG/DL (70-100); POTASSIUM SERUM 3.8 MEQ/L (3.5-5.1); SODIUM LEVEL 143 MEQ/L (136-145); TOTAL PROTEIN 5.3 GM/DL (6.4-8.2)
[2020-02-14 08:12] LABS: ANISOCYTOSIS 1+; ATYPICAL LYMPH 2 % (0-5); LYMPHOCYTES 9 % (16-44); MONOCYTES 4 % (0-5); NEUTROPHILS 85 % (28-66); PLATELET ESTIMATE NORMAL (NORMAL)
[2020-02-14] MEDS: LOSARTAN 50MG TABLET PO SCH (08:43)
[2020-02-14] MEDS: amLODIPine 5 MG TAB PO SCH (08:44)
[2020-02-14] MEDS: DOCUSATE SODIUM 100MG CAPSULE PO SCH ×2 (08:45→20:16)
[2020-02-14] MEDS: FUROSEMIDE 40 MG TAB PO SCH (08:45)
[2020-02-14] MEDS: PANTOPRAZOLE 40MG TAB (PROTONIX) PO SCH (08:45)
[2020-02-14] MEDS: DOXYCYCLINE HYCLATE 100MG TABLET PO SCH ×2 (08:45→20:16)
[2020-02-14] MEDS: LEVEMIR (INSULIN DETEMIR) 1 UNITS/0.01ML SC SCH ×2 (08:46→20:17)
[2020-02-14] MEDS: HumaLOG INSULIN (NovoLOG) PER UNIT SC SCH ×4 (08:46→20:34)
[2020-02-14] MEDS: SODIUM CHLORIDE 0.9% INJ 10 ML SYR IV SCH (13:39)
[2020-02-14] MEDS ORDERED: guaiFENesin SYRUP 200 MG/10 ML UDC PO PRN (15:45)
--- NOTE | 2020-02-14 18:42 | IPNPDOC ---
Text Note Date of Service The patient was seen on 02/14/20. NOTE Subjective: Patient states she is feeling better today. No new medical complaints. Does note difficulty with expectoration. No acute overnight events reported. Discussed with nursing staff, no new concerns. Objective: General: NAD, lying comfortably in bed A/P: 59F with diabetes mellitus type 2, systolic CHF, and history of pulmonary embolus in 2019 who is here for worsening dyspnea and found to have COVID pneumonia. On arrival, her oxygen requirements increased from 5L O2 to Vapotherm. She will be on IV steroids, Remdesivir, and doxycycline. She will be given Ceftriaxone to cover for bacterial pneumonia. Will trend procalcitonin to determine if Ceftriaxone is to be continued. #Acute hypoxic respiratory failure Secondary to COVID pneumonia Initially positive on 02/04/2020 Requiring Vapotherm at this time Continue to follow inflammatory markers/acute phase reactants (ESR, CRP, ferritin, LDH, fibrinogen, d-dimer) Check pro-calcitonin Continue with dexamethasone, doxycycline, and Remdesivir -Active proning and incentive spirometer ordered -Albuterol as needed for dyspnea - added acapella and mucolytics # Chronic systolic CHF Continue PO Lasix -Monitor renal function #HTN Blood pressure elevated. She has not taken her blood pressure medication today Continue losartan #IDDM Carbohydrate consistent diet and insulin sliding scale Levemir 40 units twice a day 5. Depression Continue with amitriptyline 6. GERD Continue with pantoprazole 7. DVT prophylaxis Lovenox Disposition: Pending improvement in respiratory status. Currently on Vapotherm VS,Fishbone, I+O VS, Fishbone, I+O Laboratory Tests 02/14/20 06:42 Vital Signs Date Time Temp Pulse Resp B/P (MAP) Pulse Ox O2 Delivery O2 Flow Rate FiO2 02/14/20 15:08 80 158/70 02/14/20 12:30 98.9 20 91 HVNI-Vapotherm 20.0 60 I&O- Last 24 Hours up to 6 AM 02/14/20 06:00 Intake Total 1880 ml Output Total 1600 ml Balance 280 ml MARCELLA RUSSO MD Feb 14, 2020 18:42
[2020-02-14] MEDS: ACETAMINOPHEN TAB 650MG DOSE (2X325MG) PO PRN (20:16)
[2020-02-14] MEDS: AMITRIPTYLINE 50 MG TAB PO SCH (20:16)
[2020-02-15] VITALS (16 sets, daily range): BP systolic 144–161; BP diastolic 60–100; O2SAT 89–96
[2020-02-15] MEDS: cefTRIAXone SOD 1 GM in D5W MINI-BAG PLUS 50 ML IV SCH (00:22)
[2020-02-15] MEDS: LABETALOL 100MG/20ML VIAL IV SCH ×4 (03:17→21:44)
[2020-02-15] MEDS: ENOXAPARIN 80MG/0.8ML SYRINGE (J1650 PER 10MG) SC SCH ×2 (06:14→17:19)
[2020-02-15 08:23] LABS: BASO % 0.4 % (0.0-1.0); EOS # 0.1 10^3/uL (0.0-0.5); EOS % 0.9 % (0.0-3.0); HEMATOCRIT 39.3 % (36.0-47.0); HEMOGLOBIN 12.2 g/dl (12.0-15.5); MEAN CORPUSCULAR HEMOGLOBIN 25.5 pg (27.0-33.0); MEAN CORPUSCULAR VOLUME 82.2 fl (80.0-96.0); MONO # 0.4 10^3/uL (0.0-0.8); MONO % 5.3 % (0.0-5.0); NEUTROPHILS # 5.3 10^3/uL (1.5-8.5); NEUTROPHILS % 76.8 % (36.0-66.0); PLATELET COUNT, AUTOMATED 244 10^3/uL (150-450); RED BLOOD COUNT 4.78 10^6/uL (4.00-5.40); WHITE BLOOD COUNT 6.9 10^3/uL (4.0-10.0)
[2020-02-15] MEDS: HumaLOG INSULIN (NovoLOG) PER UNIT SC SCH ×4 (08:44→21:00)
[2020-02-15] MEDS: DOCUSATE SODIUM 100MG CAPSULE PO SCH ×2 (08:45→21:44)
[2020-02-15] MEDS: FUROSEMIDE 40 MG TAB PO SCH (08:45)
[2020-02-15] MEDS: PANTOPRAZOLE 40MG TAB (PROTONIX) PO SCH (08:46)
[2020-02-15] MEDS: DOXYCYCLINE HYCLATE 100MG TABLET PO SCH ×2 (08:46→21:43)
[2020-02-15] MEDS: LOSARTAN 50MG TABLET PO SCH (08:46)
[2020-02-15] MEDS: amLODIPine 5 MG TAB PO SCH (08:46)
[2020-02-15 08:49] LABS: INR 1.14; PROTHROMBIN TIME 14.9 SECONDS (12.5-14.3)
[2020-02-15 08:50] LABS: PARTIAL THROMBOPLASTIN TIME 30.3 SECONDS (24.2-38.5)
[2020-02-15] MEDS: LEVEMIR (INSULIN DETEMIR) 1 UNITS/0.01ML SC SCH ×2 (08:51→21:00)
[2020-02-15 08:52] LABS: ALBUMIN 2.5 GM/DL (3.2-5.2); ALT/SGPT 25 U/L (12-78); BILIRUBIN,DIRECT 0.2 MG/DL (0.0-0.2); BILIRUBIN,TOTAL 0.4 MG/DL (0.2-1.0); BLOOD UREA NITROGEN 24 MG/DL (7-18); C REACTIVE PROTEIN QUANTITATIV 1.35 MG/DL (0.00-0.30); CALCIUM LEVEL 7.7 MG/DL (8.8-10.2); CARBON DIOXIDE LEVEL 31 MEQ/L (21-32); CHLORIDE LEVEL 108 MEQ/L (98-107); CREATININE FOR GFR 0.65 MG/DL (0.55-1.30); D-DIMER QUANT 1652.72 ng/ml (<500); FERRITIN 111 NG/ML (8-252); GLOMERULAR FILTRATION RATE > 60.0 (>45); GLUCOSE, FASTING 126 MG/DL (70-100); MAGNESIUM LEVEL 1.9 MG/DL (1.8-2.4); POTASSIUM SERUM 3.1 MEQ/L (3.5-5.1); SODIUM LEVEL 145 MEQ/L (136-145); TOTAL PROTEIN 5.8 GM/DL (6.4-8.2)
--- NOTE | 2020-02-15 09:29 | ECHO ---
DATE OF PROCEDURE: 02/13/2020 Age: 59 Gender: Female Height: 182 cm Weight: 131 kg REFERRING PHYSICIAN: Vashti Martinez M.D. INDICATION: Heart failure, unspecified. MEASUREMENTS: 2D Measurements: Left ventricle diastole 6.0 cm Intraventricular septum 0.84 cm Posterior wall 0.95 cm Left atrium 4.2 cm Inferior vena cava 1.7 cm with normal respiratory variation Left atrium 4.2 cm Aortic root 2.5 cm Proximal ascending aorta 2.6 cm Doppler Measurements: No aortic stenosis No aortic regurgitation Trace mitral regurgitation No tricuspid regurgitation No pulmonic regurgitation Aortic valve velocity 103 cm/s LVOT velocity 106 cm/s LVOT VTI 20.2 cm MITRAL ANNULAR TISSUE DOPPLER E prime septal 6.2 cm/s, E prime lateral 7.2 cm/s DESCRIPTION: Rhythm was sinus. This was a technically difficult echocardiogram. No pericardial effusion. This was a 2D, M-mode, color flow Doppler, and pulsed wave Doppler examination including mitral annular tissue Doppler. CONCLUSIONS: 1. Mildly dilated left ventricle at end-diastole. Normal left ventricular (LV) wall thickness. Normal regional left ventricular (LV) wall motion and wall thickening. Normal left ventricular (LV) systolic function. Left ventricular ejection fraction (LVEF) 60% by visual estimate. Grade 2 left ventricular (LV) diastolic dysfunction (pseudonormal filling pattern). 2. Mild left atrial dilatation. 3. Moderate mitral annular calcification. Trace mitral regurgitation. No mitral stenosis. 4. Mild aortic valve sclerosis of a 3-cuspid aortic valve. No aortic regurgitation. 5. Technically difficult echocardiogram. [facility]
[2020-02-15 13:54] LABS: HEP C VIRUS AB INDEX SOURCE PT < 0.0 INDEX (0.0-0.8); HEPATITIS B SURFACE ANTIGEN NEGATIVE (NEGATIVE)
[2020-02-15 14:08] LABS: HIV SCREEN CENTAUR SOURCE NEGATIVE (NEGATIVE)
[2020-02-15] MEDS: SODIUM CHLORIDE 0.9% INJ 10 ML SYR IV SCH (15:00)
[2020-02-15] MEDS: AMITRIPTYLINE 50 MG TAB PO SCH (21:43)
[2020-02-16] VITALS (7 sets, daily range): BP systolic 139–171; BP diastolic 62–95; O2SAT 89–90
[2020-02-16] MEDS: cefTRIAXone SOD 1 GM in D5W MINI-BAG PLUS 50 ML IV SCH (00:20)
[2020-02-16] MEDS: LABETALOL 100MG/20ML VIAL IV SCH ×4 (03:40→22:13)
[2020-02-16] MEDS: ENOXAPARIN 80MG/0.8ML SYRINGE (J1650 PER 10MG) SC SCH ×2 (06:31→17:24)
[2020-02-16] MEDS: HumaLOG INSULIN (NovoLOG) PER UNIT SC SCH ×4 (07:30→22:15)
[2020-02-16 08:18] LABS: BASO % 0.3 % (0.0-1.0); EOS # 0.2 10^3/uL (0.0-0.5); HEMATOCRIT 38.8 % (36.0-47.0); HEMOGLOBIN 12.4 g/dl (12.0-15.5); LYMPH # 0.9 10^3/uL (1.5-5.0); LYMPH % 12.2 % (24.0-44.0); MEAN CORPUSCULAR HEMOGLOBIN 26.1 pg (27.0-33.0); MEAN CORPUSCULAR VOLUME 81.5 fl (80.0-96.0); MONO # 0.3 10^3/uL (0.0-0.8); MONO % 4.5 % (0.0-5.0); NEUTROPHILS % 79.5 % (36.0-66.0); PLATELET COUNT, AUTOMATED 231 10^3/uL (150-450); RED BLOOD COUNT 4.76 10^6/uL (4.00-5.40); WHITE BLOOD COUNT 7.5 10^3/uL (4.0-10.0)
[2020-02-16 08:30] LABS: INR 1.19; PROTHROMBIN TIME 15.4 SECONDS (12.5-14.3)
[2020-02-16 08:31] LABS: PARTIAL THROMBOPLASTIN TIME 33.4 SECONDS (24.2-38.5)
[2020-02-16 08:33] LABS: D-DIMER QUANT 2216.53 ng/ml (<500)
[2020-02-16 08:54] LABS: ALBUMIN 2.4 GM/DL (3.2-5.2); ALT/SGPT 25 U/L (12-78); BILIRUBIN,DIRECT 0.2 MG/DL (0.0-0.2); BILIRUBIN,TOTAL 0.6 MG/DL (0.2-1.0); BLOOD UREA NITROGEN 10 MG/DL (7-18); C REACTIVE PROTEIN QUANTITATIV 3.53 MG/DL (0.00-0.30); CALCIUM LEVEL 7.4 MG/DL (8.8-10.2); CARBON DIOXIDE LEVEL 32 MEQ/L (21-32); CHLORIDE LEVEL 101 MEQ/L (98-107); CREATININE FOR GFR 0.52 MG/DL (0.55-1.30); FERRITIN 124 NG/ML (8-252); GLOMERULAR FILTRATION RATE > 60.0 (>45); GLUCOSE, FASTING 81 MG/DL (70-100); MAGNESIUM LEVEL 1.6 MG/DL (1.8-2.4); POTASSIUM SERUM 2.9 MEQ/L (3.5-5.1); SODIUM LEVEL 141 MEQ/L (136-145); TOTAL PROTEIN 5.5 GM/DL (6.4-8.2)
[2020-02-16] MEDS: LEVEMIR (INSULIN DETEMIR) 1 UNITS/0.01ML SC SCH ×2 (09:00→22:11)
[2020-02-16] MEDS ORDERED: POTASSIUM CHLORIDE 10 MEQ SR TABLET PO ONE (09:15)
[2020-02-16] MEDS: amLODIPine 5 MG TAB PO SCH (09:57)
[2020-02-16] MEDS: PANTOPRAZOLE 40MG TAB (PROTONIX) PO SCH (09:57)
[2020-02-16] MEDS: LOSARTAN 50MG TABLET PO SCH (09:58)
[2020-02-16] MEDS: DOXYCYCLINE HYCLATE 100MG TABLET PO SCH ×2 (09:58→22:11)
[2020-02-16] MEDS: FUROSEMIDE 40 MG TAB PO SCH (09:58)
[2020-02-16] MEDS: DOCUSATE SODIUM 100MG CAPSULE PO SCH ×2 (09:58→22:11)
--- NOTE | 2020-02-16 10:11 | IPNPDOC ---
Text Note Date of Service The patient was seen on 02/15/20. NOTE Subjective: Patient continues to feel better. No new medical complaints. No acute overnight events reported. Discussed with nursing staff, no new concerns. Objective: General: NAD, lying comfortably in bed A/P: 59F with diabetes mellitus type 2, systolic CHF, and history of pulmonary embolus in 2019 who is here for worsening dyspnea and found to have COVID pneumonia. On arrival, her oxygen requirements increased from 5L O2 to Vapotherm. She will be on IV steroids, Remdesivir, and doxycycline. She will be given Ceftriaxone to cover for bacterial pneumonia. Will trend procalcitonin to determine if Ceftriaxone is to be continued. #Acute hypoxic respiratory failure Secondary to COVID pneumonia Initially positive on 02/04/2020 Requiring Vapotherm at this time Continue to follow inflammatory markers/acute phase reactants (ESR, CRP, ferritin, LDH, fibrinogen, d-dimer) Check pro-calcitonin Continue with dexamethasone, doxycycline, and Remdesivir -Active proning and incentive spirometer ordered -Albuterol as needed for dyspnea - mucolytics # Chronic systolic CHF Continue PO Lasix -Monitor renal function #HTN Blood pressure elevated. She has not taken her blood pressure medication today Continue losartan #IDDM Carbohydrate consistent diet and insulin sliding scale Levemir 40 units twice a day 5. Depression Continue with amitriptyline 6. GERD Continue with pantoprazole 7. DVT prophylaxis Lovenox Disposition: Pending improvement in respiratory status. Currently on Vapotherm VS,Fishbone, I+O VS, Fishbone, I+O Laboratory Tests 02/16/20 07:55 Vital Signs Date Time Temp Pulse Resp B/P (MAP) Pulse Ox O2 Delivery O2 Flow Rate FiO2 02/16/20 08:00 98.8 84 26 171/95 (120) 91 HVNI-Vapotherm 20.0 70 I&O- Last 24 Hours up to 6 AM 02/16/20 06:00 Intake Total 1020 ml Output Total 4350 ml Balance -3330 ml MARCELLA RUSSO MD Feb 16, 2020 10:11
--- NOTE | 2020-02-16 10:16 | IPNPDOC ---
Text Note Date of Service The patient was seen on 02/16/20. NOTE Subjective: Patient seen at bedside. Continues to feel better. No new medical complaints. Discussed with nursing staff, noted she did not appear to be as motivated or enthusiastic as she was earlier in her hospital stay. Was noted to be hypokalemic and hypoglycemic this morning. Objective: General: NAD, lying comfortably in bed HEENT: NC, vapotherm cannula in place Abd: obese A/P: 59F with diabetes mellitus type 2, systolic CHF, and history of pulmonary embolus in 2019 who is here for worsening dyspnea and found to have COVID pneumonia. On arrival, her oxygen requirements increased from 5L O2 to Vapotherm. She will be on IV steroids, Remdesivir, and doxycycline. She will be given Ceftriaxone to cover for bacterial pneumonia. Will trend procalcitonin to determine if Ceftriaxone is to be continued. #Acute hypoxic respiratory failure Secondary to COVID pneumonia Initially positive on 02/04/2020 Requiring Vapotherm at this time Continue to follow inflammatory markers/acute phase reactants (ESR, CRP, ferritin, LDH, fibrinogen, d-dimer) Continue with dexamethasone, doxycycline, and Remdesivir -Active proning and incentive spirometer ordered -Albuterol as needed for dyspnea - mucolytics # Chronic systolic CHF Continue PO Lasix -Monitor renal function #HTN Blood pressure elevated. She has not taken her blood pressure medication today Continue losartan #IDDM Carbohydrate consistent diet and insulin sliding scale Levemir 40 units twice a day #Depression Continue with amitriptyline #GERD Continue with pantoprazole #DVT prophylaxis Lovenox Disposition: Pending improvement in respiratory status. Currently on Vapotherm VS,Fishbone, I+O VS, Fishbone, I+O Laboratory Tests 02/16/20 07:55 Vital Signs Date Time Temp Pulse Resp B/P (MAP) Pulse Ox O2 Delivery O2 Flow Rate FiO2 02/16/20 08:00 98.8 84 26 171/95 (120) 91 HVNI-Vapotherm 20.0 70 I&O- Last 24 Hours up to 6 AM 02/16/20 06:00 Intake Total 1020 ml Output Total 4350 ml Balance -3330 ml MARCELLA RUSSO MD Feb 16, 2020 10:16
[2020-02-16] MEDS ORDERED: MAG SULF 1GM/100ML (MAG RUN) 1 GM in IV 1 EA IV ONE (10:30)
[2020-02-16] MEDS: dexameTHASONE 4 MG/ML 1ML VIAL (J1100 PER 1MG) IV SCH (12:35)
[2020-02-16] MEDS: SODIUM CHLORIDE 0.9% INJ 10 ML SYR IV SCH (15:02)
[2020-02-16] MEDS: AMITRIPTYLINE 50 MG TAB PO SCH (22:10)
[2020-02-17] VITALS (31 sets, daily range): BP systolic 115–170; BP diastolic 59–85; O2SAT 90–100
[2020-02-17] MEDS: cefTRIAXone SOD 1 GM in D5W MINI-BAG PLUS 50 ML IV SCH (01:15)
[2020-02-17] MEDS: LABETALOL 100MG/20ML VIAL IV SCH ×4 (03:00→20:40)
[2020-02-17] MEDS: ENOXAPARIN 80MG/0.8ML SYRINGE (J1650 PER 10MG) SC SCH ×2 (06:18→18:06)
[2020-02-17 06:53] LABS: BASO % 0.2 % (0.0-1.0); EOS % 0.2 % (0.0-3.0); HEMATOCRIT 38.2 % (36.0-47.0); LYMPH # 0.4 10^3/uL (1.5-5.0); LYMPH % 6.8 % (24.0-44.0); MEAN CORPUSCULAR HEMOGLOBIN 25.9 pg (27.0-33.0); MEAN CORPUSCULAR HGB CONC 31.4 g/dl (32.0-36.5); MEAN CORPUSCULAR VOLUME 82.3 fl (80.0-96.0); MONO # 0.3 10^3/uL (0.0-0.8); MONO % 4.9 % (0.0-5.0); PLATELET COUNT, AUTOMATED 218 10^3/uL (150-450); RED BLOOD COUNT 4.64 10^6/uL (4.00-5.40); WHITE BLOOD COUNT 5.7 10^3/uL (4.0-10.0)
[2020-02-17 07:07] LABS: D-DIMER QUANT 874.04 ng/ml (<500)
[2020-02-17 07:30] LABS: BLOOD UREA NITROGEN 18 MG/DL (7-18); CALCIUM LEVEL 7.9 MG/DL (8.8-10.2); CARBON DIOXIDE LEVEL 34 MEQ/L (21-32); CHLORIDE LEVEL 102 MEQ/L (98-107); GLOMERULAR FILTRATION RATE > 60.0 (>45); GLUCOSE, FASTING 241 MG/DL (70-100); POTASSIUM SERUM 4.2 MEQ/L (3.5-5.1); SODIUM LEVEL 139 MEQ/L (136-145)
[2020-02-17 07:31] LABS: ALBUMIN 2.3 GM/DL (3.2-5.2); ALT/SGPT 23 U/L (12-78); BILIRUBIN,TOTAL 0.5 MG/DL (0.2-1.0); C REACTIVE PROTEIN QUANTITATIV 4.34 MG/DL (0.00-0.30); FERRITIN 125 NG/ML (8-252); MAGNESIUM LEVEL 2.2 MG/DL (1.8-2.4); TOTAL PROTEIN 5.5 GM/DL (6.4-8.2)
[2020-02-17] MEDS: LOSARTAN 50MG TABLET PO SCH (08:30)
[2020-02-17] MEDS: PANTOPRAZOLE 40MG TAB (PROTONIX) PO SCH (08:31)
[2020-02-17] MEDS: amLODIPine 5 MG TAB PO SCH (08:31)
[2020-02-17] MEDS: DOXYCYCLINE HYCLATE 100MG TABLET PO SCH ×2 (08:31→20:38)
[2020-02-17] MEDS: DOCUSATE SODIUM 100MG CAPSULE PO SCH ×2 (08:31→20:38)
[2020-02-17] MEDS: FUROSEMIDE 40 MG TAB PO SCH (08:31)
[2020-02-17] MEDS: dexameTHASONE 4 MG/ML 1ML VIAL (J1100 PER 1MG) IV SCH (08:31)
[2020-02-17] MEDS: HumaLOG INSULIN (NovoLOG) PER UNIT SC SCH ×4 (08:32→20:39)
[2020-02-17] MEDS: LEVEMIR (INSULIN DETEMIR) 1 UNITS/0.01ML SC SCH ×2 (08:33→20:39)
[2020-02-17] MEDS: MIRALAX *UNIT DOSE* 17GM PACKET PO PRN (09:51)
[2020-02-17] MEDS: SODIUM CHLORIDE 0.9% INJ 10 ML SYR IV SCH (16:16)
[2020-02-17] MEDS: AMITRIPTYLINE 50 MG TAB PO SCH (20:38)
[2020-02-18] VITALS (11 sets, daily range): BP systolic 124–154; BP diastolic 59–79; O2SAT 90–96
[2020-02-18] MEDS: cefTRIAXone SOD 1 GM in D5W MINI-BAG PLUS 50 ML IV SCH ×2 (00:36→23:42)
[2020-02-18] MEDS: LABETALOL 100MG/20ML VIAL IV SCH (03:00)
[2020-02-18] MEDS: ENOXAPARIN 80MG/0.8ML SYRINGE (J1650 PER 10MG) SC SCH ×2 (05:43→17:13)
[2020-02-18 07:25] LABS: BASO % 0.3 % (0.0-1.0); EOS # 0.1 10^3/uL (0.0-0.5); EOS % 1.3 % (0.0-3.0); HEMATOCRIT 38.2 % (36.0-47.0); HEMOGLOBIN 11.7 g/dl (12.0-15.5); LYMPH # 0.9 10^3/uL (1.5-5.0); LYMPH % 12.3 % (24.0-44.0); MEAN CORPUSCULAR HEMOGLOBIN 25.1 pg (27.0-33.0); MEAN CORPUSCULAR HGB CONC 30.6 g/dl (32.0-36.5); MONO # 0.5 10^3/uL (0.0-0.8); MONO % 6.1 % (0.0-5.0); NEUTROPHILS # 5.9 10^3/uL (1.5-8.5); NEUTROPHILS % 79.3 % (36.0-66.0); PLATELET COUNT, AUTOMATED 250 10^3/uL (150-450); RED BLOOD COUNT 4.66 10^6/uL (4.00-5.40); WHITE BLOOD COUNT 7.4 10^3/uL (4.0-10.0)
[2020-02-18 07:44] LABS: ALBUMIN 2.4 GM/DL (3.2-5.2); ALT/SGPT 20 U/L (12-78); BILIRUBIN,TOTAL 0.4 MG/DL (0.2-1.0); BLOOD UREA NITROGEN 19 MG/DL (7-18); CALCIUM LEVEL 8.1 MG/DL (8.8-10.2); CARBON DIOXIDE LEVEL 31 MEQ/L (21-32); CHLORIDE LEVEL 102 MEQ/L (98-107); GLOMERULAR FILTRATION RATE > 60.0 (>45); GLUCOSE, FASTING 143 MG/DL (70-100); POTASSIUM SERUM 3.8 MEQ/L (3.5-5.1); SODIUM LEVEL 140 MEQ/L (136-145); TOTAL PROTEIN 5.9 GM/DL (6.4-8.2)
[2020-02-18] MEDS: PANTOPRAZOLE 40MG TAB (PROTONIX) PO SCH (08:10)
[2020-02-18] MEDS: DOXYCYCLINE HYCLATE 100MG TABLET PO SCH ×2 (08:10→20:39)
[2020-02-18] MEDS: DOCUSATE SODIUM 100MG CAPSULE PO SCH ×2 (08:10→20:39)
[2020-02-18] MEDS: amLODIPine 5 MG TAB PO SCH (08:11)
[2020-02-18] MEDS: FUROSEMIDE 40 MG TAB PO SCH (08:11)
[2020-02-18] MEDS: dexameTHASONE 4 MG/ML 1ML VIAL (J1100 PER 1MG) IV SCH (08:12)
[2020-02-18] MEDS: LOSARTAN 50MG TABLET PO SCH (08:12)
[2020-02-18] MEDS: MIRALAX *UNIT DOSE* 17GM PACKET PO PRN (08:12)
[2020-02-18] MEDS: LEVEMIR (INSULIN DETEMIR) 1 UNITS/0.01ML SC SCH ×2 (08:13→20:41)
[2020-02-18] MEDS: HumaLOG INSULIN (NovoLOG) PER UNIT SC SCH ×4 (08:13→20:41)
[2020-02-18] MEDS: LABETALOL 100 MG TAB PO SCH ×2 (10:24→20:40)
--- NOTE | 2020-02-18 10:45 | IPNPDOC ---
Text Note Date of Service The patient was seen on 02/17/20. NOTE Subjective: Patient seen at bedside. Continues to feel better. No new medical complaints. Objective: General: NAD, lying comfortably in bed HEENT: NC, vapotherm cannula in place Abd: obese A/P: 59F with diabetes mellitus type 2, systolic CHF, and history of pulmonary embol us in 2019 who is here for worsening dyspnea and found to have COVID pneumonia. On arrival, her oxygen requirements increased from 5L O2 to Vapotherm. She will be on IV steroids, Remdesivir, and doxycycline. She will be given Ceftriaxone to cover for bacterial pneumonia. #Acute hypoxic respiratory failure Secondary to COVID pneumonia Initially positive on 02/04/2020 Requiring Vapotherm at this time Continue to follow inflammatory markers/acute phase reactants (ESR, CRP, ferritin, LDH, fibrinogen, d-dimer) Continue with dexamethasone, doxycycline, and Remdesivir -Active proning and incentive spirometer ordered -Albuterol as needed for dyspnea - mucolytics # Chronic systolic CHF Continue PO Lasix -Monitor renal function #HTN Blood pressure elevated. Continue losartan, iv labetalol with hold parameters, norvasc, lasix #IDDM Carbohydrate consistent diet and insulin sliding scale Levemir 40 units twice a day #Depression Continue with amitriptyline #GERD Continue with pantoprazole #DVT prophylaxis Lovenox Disposition: Pending improvement in respiratory status. Currently on Vapotherm VS,Fishbone, I+O VS, Fishbone, I+O Laboratory Tests 02/18/20 06:37 Vital Signs Date Time Temp Pulse Resp B/P (MAP) Pulse Ox O2 Delivery O2 Flow Rate FiO2 02/18/20 10:29 91 High Flow Cannula 4.0 02/18/20 10:24 76 135/79 02/18/20 08:49 30 02/18/20 08:00 97.7 19 I&O- Last 24 Hours up to 6 AM 02/18/20 06:00 Intake Total 1670 ml Output Total 2400 ml Balance -730 ml MARCELLA RUSSO MD Feb 18, 2020 10:45
--- NOTE | 2020-02-18 10:48 | IPNPDOC ---
Text Note Date of Service The patient was seen on 02/18/20. NOTE Subjective: Patient seen at bedside. Feeling much better today. No new medical complaints. No acute overnight events reported. Objective: General: NAD, lying comfortably in bed HEENT: NC, vapotherm cannula in place Abd: obese. Extremities: Bilateral lower extremity edema A/P: 59F with diabetes mellitus type 2, systolic CHF, and history of pulmonary embolus in 2019 who is here for worsening dyspnea and found to have COVID pneumonia. On arrival, her oxygen requirements increased from 5L O2 to Vapotherm. She remains on IV steroids, Remdesivir, and doxycycline. #Acute hypoxic respiratory failure Secondary to COVID pneumonia Initially positive on 02/04/2020 Requiring Vapotherm at this time Continue to follow inflammatory markers/acute phase reactants (ESR, CRP, f erritin, LDH, fibrinogen, d-dimer) Continue with dexamethasone, doxycycline, and Remdesivir -Active proning and incentive spirometer ordered -Albuterol as needed for dyspnea - mucolytics. Wean oxygen as tolerated # Chronic systolic CHF Continue PO Lasix -Monitor renal function #HTN Blood pressure elevated. Continue losartan, Norvasc and Lasix. Will transition from IV labetalol to oral - she states she has had difficulty controlling her blood pressure as outpatient and was previously taking HCTZ which was transitioned to Lasix #IDDM Carbohydrate consistent diet and insulin sliding scale Levemir 40 units twice a day #Depression Continue with amitriptyline #GERD Continue with pantoprazole #DVT prophylaxis Lovenox Disposition: Continues to improve. She is being titrated today to nasal cannula VS,Fishbone, I+O VS, Fishbone, I+O Laboratory Tests 02/18/20 06:37 Vital Signs Date Time Temp Pulse Resp B/P (MAP) Pulse Ox O2 Delivery O2 Flow Rate FiO2 02/18/20 10:29 91 High Flow Cannula 4.0 02/18/20 10:24 76 135/79 02/18/20 08:49 30 02/18/20 08:00 97.7 19 I&O- Last 24 Hours up to 6 AM 02/18/20 06:00 Intake Total 1670 ml Output Total 2400 ml Balance -730 ml MARCELLA RUSSO MD Feb 18, 2020 10:47
[2020-02-18] MEDS: SODIUM CHLORIDE 0.9% INJ 10 ML SYR IV SCH (14:10)
[2020-02-18] MEDS: AMITRIPTYLINE 50 MG TAB PO SCH (20:40)
[2020-02-19] VITALS (8 sets, daily range): BP systolic 123–159; BP diastolic 70–85; O2SAT 89–95
[2020-02-19] MEDS: ENOXAPARIN 80MG/0.8ML SYRINGE (J1650 PER 10MG) SC SCH ×2 (05:56→17:17)
[2020-02-19 06:43] LABS: BASO % 0.3 % (0.0-1.0); EOS # 0.1 10^3/uL (0.0-0.5); EOS % 1.3 % (0.0-3.0); HEMATOCRIT 36.3 % (36.0-47.0); HEMOGLOBIN 10.9 g/dl (12.0-15.5); LYMPH # 1.1 10^3/uL (1.5-5.0); LYMPH % 18.4 % (24.0-44.0); MEAN CORPUSCULAR HEMOGLOBIN 25.1 pg (27.0-33.0); MEAN CORPUSCULAR VOLUME 83.6 fl (80.0-96.0); MONO # 0.6 10^3/uL (0.0-0.8); NEUTROPHILS # 4.3 10^3/uL (1.5-8.5); NEUTROPHILS % 70.3 % (36.0-66.0); PLATELET COUNT, AUTOMATED 208 10^3/uL (150-450); RED BLOOD COUNT 4.34 10^6/uL (4.00-5.40); WHITE BLOOD COUNT 6.1 10^3/uL (4.0-10.0)
[2020-02-19 06:58] LABS: D-DIMER QUANT 774.3 ng/ml (<500)
[2020-02-19 07:15] LABS: ALBUMIN 2.4 GM/DL (3.2-5.2); ALT/SGPT 20 U/L (12-78); BILIRUBIN,TOTAL 0.4 MG/DL (0.2-1.0); BLOOD UREA NITROGEN 20 MG/DL (7-18); CALCIUM LEVEL 7.9 MG/DL (8.8-10.2); CARBON DIOXIDE LEVEL 33 MEQ/L (21-32); CHLORIDE LEVEL 104 MEQ/L (98-107); CREATININE FOR GFR 0.66 MG/DL (0.55-1.30); FERRITIN 97 NG/ML (8-252); GLOMERULAR FILTRATION RATE > 60.0 (>45); GLUCOSE, FASTING 118 MG/DL (70-100); POTASSIUM SERUM 4.1 MEQ/L (3.5-5.1); SODIUM LEVEL 141 MEQ/L (136-145); TOTAL PROTEIN 5.5 GM/DL (6.4-8.2)
[2020-02-19] MEDS: PANTOPRAZOLE 40MG TAB (PROTONIX) PO SCH (08:25)
[2020-02-19] MEDS: FUROSEMIDE 40 MG TAB PO SCH (08:25)
[2020-02-19] MEDS: DOCUSATE SODIUM 100MG CAPSULE PO SCH ×2 (08:25→20:35)
[2020-02-19] MEDS: DOXYCYCLINE HYCLATE 100MG TABLET PO SCH ×2 (08:25→20:35)
[2020-02-19] MEDS: LOSARTAN 50MG TABLET PO SCH (08:26)
[2020-02-19] MEDS: amLODIPine 5 MG TAB PO SCH (08:26)
[2020-02-19] MEDS: LABETALOL 100 MG TAB PO SCH ×2 (08:26→20:35)
[2020-02-19] MEDS: LEVEMIR (INSULIN DETEMIR) 1 UNITS/0.01ML SC SCH ×2 (08:27→20:36)
[2020-02-19] MEDS: dexameTHASONE 4 MG/ML 1ML VIAL (J1100 PER 1MG) IV SCH (08:27)
[2020-02-19] MEDS: MIRALAX *UNIT DOSE* 17GM PACKET PO PRN (08:27)
[2020-02-19] MEDS: HumaLOG INSULIN (NovoLOG) PER UNIT SC SCH ×4 (08:28→20:22)
--- NOTE | 2020-02-19 14:01 | IPNPDOC ---
Text Note Date of Service The patient was seen on 02/19/20. NOTE Subjective: Patient seen at bedside. Continues to feel much better. Objective: General: NAD, lying comfortably in bed HEENT: NC, nasal cannula in place Abd: obese. Extremities: Bilateral lower extremity edema A/P: 59F with diabetes mellitus type 2, systolic CHF, and history of pulmonary embolus in 2019 who is here for worsening dyspnea and found to have COVID pneumonia. On arrival, her oxygen requirements increased from 5L O2 to Vapotherm, and now on nasal cannula. She remains on IV steroids, Remdesivir, and doxycycline. #Acute hypoxic respiratory failure Secondary to COVID pneumonia Initially positive on 02/04/2020 titrated to 2L nasal cannula Continue to follow inflammatory markers/acute phase reactants (ESR, CRP, ferritin, LDH, fibrinogen, d-dimer) Continue with dexamethasone, doxycycline, and Remdesivir -Active proning and incentive spirometer ordered -Albuterol as needed for dyspnea - mucolytics. Wean oxygen as tolerated # Chronic systolic CHF Continue PO Lasix -Monitor renal function #HTN Blood pressure elevated. Continue losartan, Norvasc and Lasix. Will transition from IV labetalol to oral - she states she has had difficulty controlling her blood pressure as outpatient and was previously taking HCTZ which was transitioned to Lasix #IDDM Carbohydrate consistent diet and insulin sliding scale Levemir 40 units twice a day #Depression Continue with amitriptyline #GERD Continue with pantoprazole #DVT prophylaxis Lovenox Disposition: Continues to improve. Anticipating discharge in 24 hours. VS,Fishbone, I+O VS, Fishbone, I+O Laboratory Tests 02/19/20 06:31 Vital Signs Date Time Temp Pulse Resp B/P (MAP) Pulse Ox O2 Delivery O2 Flow Rate FiO2 02/19/20 13:35 92 Nasal Cannula 2.0 02/19/20 08:26 76 159/79 02/19/20 08:00 97.5 18 02/18/20 08:49 30 I&O- Last 24 Hours up to 6 AM 02/19/20 06:00 Intake Total 1418 ml Output Total 2000 ml Balance -582 ml MARCELLA RUSSO MD Feb 19, 2020 14:01
[2020-02-19] MEDS: AMITRIPTYLINE 50 MG TAB PO SCH (20:35)
[2020-02-19] MEDS: cefTRIAXone SOD 1 GM in D5W MINI-BAG PLUS 50 ML IV SCH (23:54)
[2020-02-20 04:00] VITALS: BP 148/71
[2020-02-20 06:23] LABS: BASO % 0.2 % (0.0-1.0); EOS # 0.1 10^3/uL (0.0-0.5); EOS % 1.1 % (0.0-3.0); HEMATOCRIT 37.6 % (36.0-47.0); HEMOGLOBIN 11.9 g/dl (12.0-15.5); LYMPH # 1.3 10^3/uL (1.5-5.0); LYMPH % 21.2 % (24.0-44.0); MEAN CORPUSCULAR HEMOGLOBIN 26.3 pg (27.0-33.0); MEAN CORPUSCULAR HGB CONC 31.6 g/dl (32.0-36.5); MEAN CORPUSCULAR VOLUME 83.2 fl (80.0-96.0); MONO # 0.5 10^3/uL (0.0-0.8); MONO % 8.4 % (0.0-5.0); NEUTROPHILS # 4.2 10^3/uL (1.5-8.5); NEUTROPHILS % 68.3 % (36.0-66.0); PLATELET COUNT, AUTOMATED 234 10^3/uL (150-450); RED BLOOD COUNT 4.52 10^6/uL (4.00-5.40); WHITE BLOOD COUNT 6.2 10^3/uL (4.0-10.0)
[2020-02-20 06:51] LABS: ALBUMIN 2.5 GM/DL (3.2-5.2); ALT/SGPT 24 U/L (12-78); BILIRUBIN,TOTAL 0.3 MG/DL (0.2-1.0); BLOOD UREA NITROGEN 19 MG/DL (7-18); CALCIUM LEVEL 7.9 MG/DL (8.8-10.2); CARBON DIOXIDE LEVEL 31 MEQ/L (21-32); CHLORIDE LEVEL 105 MEQ/L (98-107); CREATININE FOR GFR 0.67 MG/DL (0.55-1.30); GLOMERULAR FILTRATION RATE > 60.0 (>45); GLUCOSE, FASTING 119 MG/DL (70-100); SODIUM LEVEL 141 MEQ/L (136-145); TOTAL PROTEIN 5.6 GM/DL (6.4-8.2)
[2020-02-20] MEDS: ENOXAPARIN 80MG/0.8ML SYRINGE (J1650 PER 10MG) SC SCH (06:52)
[2020-02-20 08:00] VITALS: BP 152/70; O2SAT 90
[2020-02-20] MEDS: dexameTHASONE 4 MG/ML 1ML VIAL (J1100 PER 1MG) IV SCH (08:22)
[2020-02-20] MEDS: HumaLOG INSULIN (NovoLOG) PER UNIT SC SCH ×2 (08:22→12:19)
[2020-02-20] MEDS: LEVEMIR (INSULIN DETEMIR) 1 UNITS/0.01ML SC SCH (08:23)
[2020-02-20] MEDS: PANTOPRAZOLE 40MG TAB (PROTONIX) PO SCH (08:23)
[2020-02-20] MEDS: DOXYCYCLINE HYCLATE 100MG TABLET PO SCH (08:23)
[2020-02-20] MEDS: DOCUSATE SODIUM 100MG CAPSULE PO SCH (08:23)
[2020-02-20] MEDS: amLODIPine 5 MG TAB PO SCH (08:24)
[2020-02-20] MEDS: FUROSEMIDE 40 MG TAB PO SCH (08:24)
[2020-02-20 08:25] VITALS: BP 152/70
[2020-02-20] MEDS: LOSARTAN 50MG TABLET PO SCH (08:25)
[2020-02-20] MEDS: LABETALOL 100 MG TAB PO SCH (08:25)
[2020-02-20] MEDS ORDERED: CEFD1CAP8 PO (11:27)
[2020-02-20] MEDS ORDERED: LABE100T4 PO (11:27)
[2020-02-20] MEDS ORDERED: PRED10TA2 PO (11:27)
[2020-02-20] MEDS ORDERED: AMLO1TAB24 PO (11:27)
[2020-02-20] MEDS ORDERED: DOXY100T PO (11:27)
[2020-02-20] MEDS ORDERED: SODIUM CHLORIDE 0.9% INJ 10 ML SYR IV SCH (13:00)
[2020-02-20] MEDS ORDERED: ECOT81TA5 PO (13:46)
[2020-02-20] MEDS ORDERED: XARE10TA PO (13:49)
--- NOTE | 2020-02-20 13:56 | DS.PDOC ---
Discharge Summary General Date of Admission Feb 11, 2020 at 08:30 Date of Discharge 02/20/20 Specialist/Consultants [facility] Discharge Summary PROCEDURES PERFORMED DURING STAY: [None]. DISCHARGE DIAGNOSES: #COVID-19 #HFrEF #HTN #IDDM #depression #GERD COMPLICATIONS/CHIEF COMPLAINT: Covid 19. HISTORY OF PRESENT ILLNESS: 59F with diabetes mellitus type 2, systolic CHF, and PE in 2019 presented for worsening dyspnea and found to have COVID pneumonia. 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 She was initially negative on 02/01/2020. She tested positive for COVID on 02/04/2020 and on 02/08/2020. First time she tested positive, chest x-ray demonstrated ground glass infiltrates. She self isolated. The second time she tested positive, she returned to the ED for worsening dyspnea. CT of the chest demonstrated ground glass infiltrates bilaterally and she was hypoxic requiring 5 L of oxygen to maintain saturations above 90%. Hospital Course: Patient admitted for further evaluation and treatment started on supplemental oxygen which eventually was titrated up to Vapotherm. She received Remdesivir, IV steroid therapy, antibiotics and intermediate therapeutic anti-coagulation. Her inflammatory markers were elevated. She eventually did respond well to treatment and successfully weaned to 2-3 L supplemental oxygen via nasal cannula. Risks and benefits of continuing anti-coagulation was discussed with patient, and opted to continue with anti-coagulation. DISCHARGE MEDICATIONS: Please see below. ALLERGIES: Please see below. PHYSICAL EXAMINATION ON DISCHARGE: VITAL SIGNS: Please see below. GENERAL: NAD, lying comfortably in bed, in good spirits LABORATORY DATA: Please see below. ACTIVITY: [As tolerated]. DISCHARGE INSTRUCTIONS: #follow up with PCP in 3-5 days #medications as directed TIME SPENT ON DISCHARGE: 35 minutes. Vital Signs/I&Os Vital Signs Date Time Temp Pulse Resp B/P (MAP) Pulse Ox O2 Delivery O2 Flow Rate FiO2 02/20/20 12:00 89 Room Air 02/20/20 08:25 77 152/70 02/20/20 08:00 98.0 18 02/20/20 04:00 2.0 02/18/20 08:49 30 I&O- Last 24 Hours up to 6 AM 02/20/20 05:59 Intake Total 900 ml Output Total 1000 ml Balance -100 ml Laboratory Data Labs 24H Laboratory Tests 2 02/19/20 17:15: Bedside Glucose (Misc Panel) 302H 02/19/20 20:14: Bedside Glucose (Misc Panel) 214H 02/20/20 05:56: Immature Granulocyte % (Auto) 0.8, Neutrophils (%) (Auto) 68.3H, Lymphocytes (%) (Auto) 21.2L, Monocytes (%) (Auto) 8.4H, Eosinophils (%) (Auto) 1.1, Basophils (%) (Auto) 0.2, Neutrophils # (Auto) 4.2, Lymphocytes # (Auto) 1.3L, Monocytes # (Auto) 0.5, Eosinophils # (Auto) 0.1, Basophils # (Auto) 0.0, Nucleated Red Blood Cells % (auto) 0.0, Anion Gap 5L, Glomerular Filtration Rate > 60.0, Ca lcium Level 7.9L, Total Bilirubin 0.3, Aspartate Amino Transf (AST/SGOT) 16, Alanine Aminotransferase (ALT/SGPT) 24, Alkaline Phosphatase 64, Total Protein 5.6L, Albumin 2.5L, Albumin/Globulin Ratio 0.8L 02/20/20 12:17: Bedside Glucose (Misc Panel) 168H CBC/BMP Laboratory Tests 02/20/20 05:56 FSBS Laboratory Tests Test 02/19/20 17:15 02/19/20 20:14 02/20/20 12:17 Range/Units Bedside Glucose (Misc Panel) 302 214 168 80-115 MG/DL Discharge Medications Scheduled Amitriptyline HCl (Amitriptyline HCl) 75 Mg Tablet, 150 MG PO QHS, (Reported) Amlodipine Besylate (Amlodipine Besylate) 5 Mg Tablet, 10 MG PO DAILY Cefdinir (Cefdinir) 300 Mg Capsule, 1 CAP PO BID Doxycycline Hyclate (Doxycycline Hyclate) 100 Mg Tablet, 100 MG PO BID Furosemide (Furosemide) 40 Mg Tablet, 40 MG PO DAILY, (Reported) Insulin Glargine,Hum.rec.anlog (Carter Guzman) 300 Unit/1 Ml Insuln.pen, 40 UNIT SC BID, (Reported) GETS SAMPLES FROM HER PCP, NOT FILLED AT [facility] Labetalol HCl (Labetalol HCl) 100 Mg Tablet, 50 MG PO BID Losartan Potassium (Losartan Potassium) 100 Mg Tablet, 100 MG PO DAILY, (Reported) Metformin HCl (Metformin HCl) 1,000 Mg Tablet, 1,000 MG PO DAILY, (Reported) SUPPER Pantoprazole Sodium (Pantoprazole Sodium) 40 Mg Tablet.dr, 40 MG PO DAILY, (Reported) Prednisone (Prednisone) 10 Mg Tablet, 10 MG PO DAILY, (Reported) Prednisone (Prednisone) 10 Mg Tablet, 10 MG PO TAPER Take 4 tabs daily x 3 days, then 3 tabs daily x 3 days, then 2 tabs daily x 3 days, then 1 tab daily x 3 days and stop Rivaroxaban (Xarelto) 10 Mg Tablet, 10 MG PO DAILY Allergies Coded Allergies: No Known Allergies (Verified Allergy, Unknown, 02/11/20) MARCELLA RUSSO MD Feb 20, 2020 13:56
== END 2020-02-20 16:10 | disposition home or self-care (01) | DRG 177 ==
LOC: EEVIPCON 08:30 → M 4MAIN 08:30
PROVIDERS: ADMIT Internal Medicine; ATTEND Internal Medicine
DX: U07.1 COVID-19 (principal); J12.89 Other viral pneumonia; J96.01 Acute respiratory failure with hypoxia; I50.22 Chronic systolic (congestive) heart failure; J81.1 Chronic pulmonary edema; E11.649 Type 2 diabetes mellitus with hypoglycemia without coma; E87.6 Hypokalemia; K21.9 Gastro-esophageal reflux disease without esophagitis; F32.9 Major depressive disorder, single episode, unspecified; Z79.899 Other long term (current) drug therapy; E78.5 Hyperlipidemia, unspecified; I11.0 Hypertensive heart disease with heart failure; Z79.4 Long term (current) use of insulin

== ENCOUNTER → 2020-05-23 | Outpatient (REF) | payer MEDICAID, OTHER ==
[~2020-05-23] MED LIST: AMIT100TA PO; AMIT75TA PO; AMLO1TAB24 PO; CEFD1CAP8 PO; DIOV160T6 PO; DOXY100T PO; ECOT81TA5 PO; FURO20TA2 PO; FURO40TA2 PO; LABE100T4 PO; LOSA100T50 PO; METF10004 PO; PANT40TA29 PO; PRED10TA2 PO; PRED20TA PO; TOUJ1.2I SC; TRUL0.5I SC; XARE10TA PO
[2020-05-23 17:55] LABS: APPEARANCE, URINE MANUAL TURBID (CLEAR); COLOR, URINE MANUAL YELLOW (YELLOW)
[2020-05-23 17:56] LABS: BILIRUBIN, URINE MANUAL NEGATIVE (NEGATIVE); BLOOD URINE MANUAL NEGATIVE (NEGATIVE); GLUCOSE, URINE (UA) MANUAL 2+(250 MG/DL) mg/dL (NEGATIVE); KETONE, URINE MANUAL 1+ mg/dL (NEGATIVE); LEUKOCYTE ESTERASE, URINE MAN NEGATIVE (NEGATIVE); NITRITE, URINE MANUAL NEGATIVE (NEGATIVE); PROTEIN, URINE MANUAL NEGATIVE (NEGATIVE); UROBILINOGEN, URINE MANUAL NORMAL (NORMAL)
[2020-05-23 18:00] LABS: BASO % 0.4 % (0.0-1.0); EOS # 0.1 10^3/uL (0.0-0.5); EOS % 2.1 % (0.0-3.0); HEMATOCRIT 41.3 % (36.0-47.0); HEMOGLOBIN 12.9 g/dl (12.0-15.5); LYMPH # 1.4 10^3/uL (1.5-5.0); LYMPH % 25.6 % (24.0-44.0); MEAN CORPUSCULAR HEMOGLOBIN 24.9 pg (27.0-33.0); MEAN CORPUSCULAR HGB CONC 31.2 g/dl (32.0-36.5); MEAN CORPUSCULAR VOLUME 79.6 fl (80.0-96.0); MONO # 0.5 10^3/uL (0.0-0.8); MONO % 9.1 % (2.0-8.0); NEUTROPHILS # 3.5 10^3/uL (1.5-8.5); NEUTROPHILS % 62.4 % (36.0-66.0); PLATELET COUNT, AUTOMATED 286 10^3/uL (150-450); RED BLOOD COUNT 5.19 10^6/uL (4.00-5.40); WHITE BLOOD COUNT 5.6 10^3/uL (4.0-10.0)
[2020-05-23 18:09] LABS: AMORPHOUS SEDIMENT, URINE LARGE AMOUNT (NEGATIVE); BACTERIA, URINE NONE SEEN; CALCIUM OXALATE CRYSTALS,URINE SMALL AMOUNT /hpf; HYALINE CAST, URINE NONE SEEN /lpf (0-1); RBC, URINE NONE SEEN /hpf (0-3); SQUAMOUS EPITHELIAL CELL URINE SMALL AMOUNT /hpf (SMALL AMT); TRANSITIONAL EPI CELLS, URINE SMALL AMOUNT /hpf; WBC, URINE NONE SEEN /hpf (0-3)
[2020-05-23 18:16] LABS: HEMOGLOBIN A1c 8.4 %
[2020-05-23 18:26] LABS: ALBUMIN 3.7 GM/DL (3.2-5.2); ALT/SGPT 18 U/L (12-78); BILIRUBIN,TOTAL 0.4 MG/DL (0.2-1.0); BLOOD UREA NITROGEN 14 MG/DL (7-18); C REACTIVE PROTEIN QUANTITATIV 2.36 MG/DL (0.00-0.30); CALCIUM LEVEL 9.2 MG/DL (8.8-10.2); CARBON DIOXIDE LEVEL 29 MEQ/L (21-32); CHLORIDE LEVEL 102 MEQ/L (98-107); CHOLESTEROL LEVEL 236 MG/DL (<200); CHOLESTEROL RISK RATIO 3.933 (<5); CREATININE FOR GFR 0.68 MG/DL (0.55-1.30); ERYTHROCYTE SEDIMENTATION RATE 19 mm/hr (0-30); GLOMERULAR FILTRATION RATE > 60.0 (>45); GLUCOSE, FASTING 254 MG/DL (70-100); HDL CHOLESTEROL 60 MG/DL (>40); LDL CHOLESTEROL 126 MG/DL (<100); NON-HDL-C 176 MG/DL; POTASSIUM SERUM 3.6 MEQ/L (3.5-5.1); SODIUM LEVEL 138 MEQ/L (136-145); TOTAL PROTEIN 6.8 GM/DL (6.4-8.2); TRIGLYCERIDES LEVEL 248 MG/DL (<150)
[2020-05-23 18:35] LABS: VITAMIN B12 LEVEL 324 PG/ML (247-911)
[2020-05-23 18:36] LABS: MALB URINE SIEMENS 34.2 MG/L; MAU/CREAT RATIO 20.6 MCG/MG (0.0-30.0)
== END ==
LOC: M LAB REF 16:55
PROVIDERS: ATTEND Pediatrics
DX: I10 Essential (primary) hypertension (principal); E11.9 Type 2 diabetes mellitus without complications; E55.9 Vitamin D deficiency, unspecified; E78.00 Pure hypercholesterolemia, unspecified; M06.9 Rheumatoid arthritis, unspecified

== ENCOUNTER → 2021-01-23 | Outpatient (CLI) | payer OTHER ==
[~2021-01-23] MED LIST changes: -CEFD1CAP8 PO; +CEFD300C41 PO; +LOSA100T45 PO; -LOSA100T50 PO
== END ==
LOC: M WHC 12:39
PROVIDERS: ATTEND Pediatrics
DX: E55.9 Vitamin D deficiency, unspecified (principal)

== ENCOUNTER → 2021-11-12 | Outpatient (CLI) | payer OTHER ==
[~2021-11-12] MED LIST changes: +ERGO500029 PO; +HYDR-3490 PO; +INSU100I36 SC; -LABE100T4 PO; +LABE100T6 PO
== END ==
LOC: M WHC 11-01 07:11
PROVIDERS: ATTEND Pediatrics
DX: R92.8 Other abnormal and inconclusive findings on diagnostic imaging of breast (principal)

== ENCOUNTER → 2021-11-28 | Outpatient (CLI) | payer OTHER ==
[~2021-11-28] MED LIST changes: +**SFHN** LIDOCAINE 1% MDV 20ML VIAL ONE; +**SFHN** SODIUM BICARBONATE 8.4% 10MEQ 10ML VIAL ONE; +MELO15TA28 PO
[2021-11-28 15:18] VITALS: BP 146/84
== END ==
LOC: M WHC 11:42 → M WHCPRO 11:42
PROVIDERS: ATTEND Surgery
DX: D24.2 Benign neoplasm of left breast (principal); Z85.3 Personal history of malignant neoplasm of breast
CPT/HCPCS: 10035; 19083; 19084; 38505; 76642; 77065; 88305; A4648

== ENCOUNTER → 2021-12-02 | Outpatient (REF) | payer OTHER ==
[~2021-12-02] MED LIST changes: -**SFHN** LIDOCAINE 1% MDV 20ML VIAL ONE; -**SFHN** SODIUM BICARBONATE 8.4% 10MEQ 10ML VIAL ONE
[2021-12-02 19:16] LABS: BLOOD UREA NITROGEN 13 MG/DL (7-18); CALCIUM LEVEL 9.2 MG/DL (8.8-10.2); CARBON DIOXIDE LEVEL 26 MEQ/L (21-32); CHLORIDE LEVEL 103 MEQ/L (98-107); CREATININE FOR GFR 0.82 MG/DL (0.55-1.30); GLOMERULAR FILTRATION RATE > 60.0 (>45); GLUCOSE, FASTING 162 MG/DL (70-100); POTASSIUM SERUM 4.1 MEQ/L (3.5-5.1); SODIUM LEVEL 138 MEQ/L (136-145)
== END ==
LOC: M PLALAB 17:17
PROVIDERS: ATTEND Surgery
DX: R92.8 Other abnormal and inconclusive findings on diagnostic imaging of breast (principal)

== ENCOUNTER → 2021-12-12 | Outpatient (CLI) | payer OTHER ==
[~2021-12-12] MED LIST changes: +PROHANCE 279.3MG/ML 15ML VIAL As Ordered ONE; +PROHANCE 279.3MG/ML 5ML VIAL As Ordered ONE
== END ==
LOC: M RAD 14:36
PROVIDERS: ATTEND Surgery
DX: R92.8 Other abnormal and inconclusive findings on diagnostic imaging of breast (principal); Z53.9 Procedure and treatment not carried out, unspecified reason

== ENCOUNTER → 2022-04-22 | Outpatient (REF) | payer OTHER ==
[~2022-04-22] MED LIST changes: -PROHANCE 279.3MG/ML 15ML VIAL As Ordered ONE; -PROHANCE 279.3MG/ML 5ML VIAL As Ordered ONE
[2022-04-22 14:48] LABS: BASO % 0.6 % (0.0-1.0); EOS # 0.1 10^3/uL (0.0-0.5); EOS % 1.2 % (0.0-3.0); HEMOGLOBIN 13.7 g/dl (12.0-15.5); MEAN CORPUSCULAR HEMOGLOBIN 25.4 pg (27.0-33.0); MEAN CORPUSCULAR HGB CONC 31.1 g/dl (32.0-36.5); MEAN CORPUSCULAR VOLUME 81.6 fl (80.0-96.0); MONO # 0.3 10^3/uL (0.0-0.8); MONO % 6.5 % (2.0-8.0); NEUTROPHILS # 3.8 10^3/uL (1.5-8.5); NEUTROPHILS % 72.5 % (36.0-66.0); PLATELET COUNT, AUTOMATED 232 10^3/uL (150-450); RED BLOOD COUNT 5.39 10^6/uL (4.00-5.40); WHITE BLOOD COUNT 5.2 10^3/uL (4.0-10.0)
[2022-04-22 15:19] LABS: TOTAL IRON BINDING CAPACITY 351 UG/DL (250-425)
[2022-04-22 15:21] LABS: ALBUMIN 3.8 G/DL (3.2-5.2); ALKALINE PHOSPHATASE 139 U/L (46-116); ALT/SGPT 15 U/L (7.0-40); AST/SGOT < 8 U/L (<34); BILIRUBIN,TOTAL 0.5 MG/DL (0.3-1.2); BLOOD UREA NITROGEN 17 MG/DL (9-23); CALCIUM LEVEL 9.2 MG/DL (8.3-10.6); CARBON DIOXIDE LEVEL 28 MMOL/L (20-31); CHLORIDE LEVEL 108 MMOL/L (98-107); CHOLESTEROL LEVEL 218 MG/DL (<200); CHOLESTEROL RISK RATIO 3.67 (<5); CREATININE FOR GFR 0.87 MG/DL (0.55-1.30); GLOMERULAR FILTRATION RATE > 60.0 (>45); GLUCOSE, FASTING 134 MG/DL (74-106); HDL CHOLESTEROL 59.3 MG/DL (>40); IRON (FE) 45 UG/DL (50-170); LDL CHOLESTEROL 132.5 MG/DL (<100); NON-HDL-C 159 MG/DL; PERCENT SATURATION 12.8 % (13.2-45.0); POTASSIUM SERUM 4.4 MMOL/L (3.5-5.1); SODIUM LEVEL 141 MMOL/L (136-145); TOTAL PROTEIN 6.9 G/DL (5.7-8.2); TRIGLYCERIDES LEVEL 131 MG/DL (<150)
[2022-04-22 15:25] LABS: THYROID STIMULATING HORMONE 1.167 uIU/ML (0.55-4.78)
[2022-04-22 15:51] LABS: HEMOGLOBIN A1c 6.7 % (4.0-6.0)
== END ==
LOC: M LAB REF 12:57
PROVIDERS: ATTEND Pediatrics
DX: E11.69 Type 2 diabetes mellitus with other specified complication (principal); R71.8 Other abnormality of red blood cells; E78.00 Pure hypercholesterolemia, unspecified

== ENCOUNTER → 2022-05-08 | Outpatient (REF) | payer OTHER | LOC: M LAB REF 16:36 | PROVIDERS: ATTEND Pediatrics | DX: R74.8 Abnormal levels of other serum enzymes (principal) ==

== ENCOUNTER → 2022-07-08 | Outpatient (CLI) | payer OTHER ==
[~2022-07-08] MED LIST changes: -LOSA100T45 PO; +LOSA100T46 PO
== END ==
LOC: M WHC 13:24
PROVIDERS: ATTEND Surgery
DX: R92.8 Other abnormal and inconclusive findings on diagnostic imaging of breast (principal); Z85.3 Personal history of malignant neoplasm of breast; R59.9 Enlarged lymph nodes, unspecified; N60.32 Fibrosclerosis of left breast; Z98.890 Other specified postprocedural states

== ENCOUNTER → 2022-11-05 | Outpatient (REF) | payer OTHER ==
[2022-11-05 16:58] LABS: ALBUMIN 3.6 G/DL (3.2-5.2); ALKALINE PHOSPHATASE 152 U/L (46-116); ALT/SGPT 17 U/L (7.0-40); AST/SGOT 16 U/L (<34); BILIRUBIN,TOTAL 0.5 MG/DL (0.3-1.2); BLOOD UREA NITROGEN 16 MG/DL (9-23); CALCIUM LEVEL 9.5 MG/DL (8.3-10.6); CARBON DIOXIDE LEVEL 31 MMOL/L (20-31); CHLORIDE LEVEL 101 MMOL/L (98-107); CREATININE FOR GFR 0.88 MG/DL (0.55-1.30); GLOMERULAR FILTRATION RATE > 60.0 (>45); GLUCOSE, FASTING 124 MG/DL (74-106); POTASSIUM SERUM 4.3 MMOL/L (3.5-5.1); SODIUM LEVEL 141 MMOL/L (136-145); TOTAL PROTEIN 6.8 G/DL (5.7-8.2)
[2022-11-05 16:59] LABS: PTH INTACT 81.6 PG/ML (18.5-88.0)
[2022-11-05 17:00] LABS: FOLATE 9.5 NG/ML (>5.4); VITAMIN B12 LEVEL 334 PG/ML (211-911)
== END ==
LOC: M LAB REF 16:14
PROVIDERS: ATTEND Pediatrics
DX: R74.8 Abnormal levels of other serum enzymes (principal); R41.0 Disorientation, unspecified

== ENCOUNTER → 2023-07-10 | Outpatient (REF) | payer OTHER, MEDICAID ==
[~2023-07-10] MED LIST changes: +CEFD1CAP9 PO; -CEFD300C41 PO; -INSU100I36 SC; +INSU100I60 SC
[2023-07-10 17:26] LABS: ALBUMIN 3.8 G/DL (3.2-5.2); ALKALINE PHOSPHATASE 113 U/L (46-116); ALT/SGPT 17 U/L (7.0-40); AST/SGOT 15 U/L (<34); BILIRUBIN,TOTAL 0.3 MG/DL (0.3-1.2); BLOOD UREA NITROGEN 15 MG/DL (9-23); CALCIUM LEVEL 8.8 MG/DL (8.3-10.6); CARBON DIOXIDE LEVEL 27 MMOL/L (20-31); CHLORIDE LEVEL 102 MMOL/L (98-107); CHOLESTEROL LEVEL 171 MG/DL (<200); CHOLESTEROL RISK RATIO 2.36 (<5); CREATININE FOR GFR 0.68 MG/DL (0.55-1.30); GLOMERULAR FILTRATION RATE > 60.0 (>45); GLUCOSE, FASTING 183 MG/DL (74-106); HDL CHOLESTEROL 72.3 MG/DL (>40); LDL CHOLESTEROL 73.5 MG/DL (<100); NON-HDL-C 98.7 MG/DL; POTASSIUM SERUM 3.9 MMOL/L (3.5-5.1); SODIUM LEVEL 140 MMOL/L (136-145); TOTAL PROTEIN 7.1 G/DL (5.7-8.2); TRIGLYCERIDES LEVEL 126 MG/DL (<150)
[2023-07-10 17:27] LABS: THYROID STIMULATING HORMONE 1.583 uIU/ML (0.55-4.78)
[2023-07-10 17:28] LABS: CREATININE, URINE 52.6 MG/DL
[2023-07-10 17:33] LABS: BASO # 0.1 10^3/uL (0.0-0.2); BASO % 0.6 % (0.0-1.0); EOS # 0.1 10^3/uL (0.0-0.5); EOS % 1.5 % (0.0-3.0); HEMATOCRIT 44.8 % (36.0-47.0); HEMOGLOBIN 14.2 g/dl (12.0-15.5); HEMOGLOBIN A1c 8.2 % (4.0-6.0); LYMPH # 1.8 10^3/uL (1.5-5.0); MEAN CORPUSCULAR HEMOGLOBIN 25.5 pg (27.0-33.0); MEAN CORPUSCULAR HGB CONC 31.7 g/dl (32.0-36.5); MEAN CORPUSCULAR VOLUME 80.6 fl (80.0-96.0); MONO # 0.6 10^3/uL (0.0-0.8); MONO % 6.3 % (2.0-8.0); NEUTROPHILS # 6.8 10^3/uL (1.5-8.5); NEUTROPHILS % 72.4 % (36.0-66.0); PLATELET COUNT, AUTOMATED 289 10^3/uL (150-450); RED BLOOD COUNT 5.56 10^6/uL (4.00-5.40); WHITE BLOOD COUNT 9.4 10^3/uL (4.0-10.0)
== END ==
LOC: M LAB REF 16:15
PROVIDERS: ATTEND Pediatrics
DX: E11.69 Type 2 diabetes mellitus with other specified complication (principal); E78.00 Pure hypercholesterolemia, unspecified

== ENCOUNTER → 2023-09-22 | Outpatient (REF) | payer OTHER, MEDICAID | LOC: M LAB REF 12:36 | PROVIDERS: ATTEND Pediatrics | DX: R32 Unspecified urinary incontinence (principal) ==

== ENCOUNTER → 2023-12-04 | Outpatient (REF) | payer MEDICARE ==
[2023-12-04 17:47] LABS: CREATININE, URINE 130.3 MG/DL; MAU/CREAT RATIO 6.1 MCG/MG (0.0-30.0)
[2023-12-04 18:39] LABS: BLOOD UREA NITROGEN 19 MG/DL (9-23); CALCIUM LEVEL 9.7 MG/DL (8.3-10.6); CARBON DIOXIDE LEVEL 25 MMOL/L (20-31); CHLORIDE LEVEL 105 MMOL/L (98-107); CREATININE FOR GFR 0.71 MG/DL (0.55-1.30); GLOMERULAR FILTRATION RATE > 60.0 (>45); GLUCOSE, FASTING 122 MG/DL (74-106); POTASSIUM SERUM 4.3 MMOL/L (3.5-5.1); SODIUM LEVEL 141 MMOL/L (136-145)
[2023-12-04 19:06] LABS: HEMOGLOBIN A1c 7.5 % (4.0-6.0)
== END ==
LOC: M LAB REF 16:33
PROVIDERS: ATTEND Pediatrics
DX: R80.9 Proteinuria, unspecified (principal); E11.69 Type 2 diabetes mellitus with other specified complication; I10 Essential (primary) hypertension

== ENCOUNTER → 2024-10-26 | Outpatient (REF) | payer MEDICARE ==
[2024-10-26 13:04] LABS: CREATININE, URINE 70.2 MG/DL; MALB URINE SIEMENS 6.0 MG/L; MAU/CREAT RATIO 8.5 MCG/MG (0.0-30.0)
== END ==
LOC: M LAB REF 12:17
PROVIDERS: ATTEND Pediatrics
DX: I10 Essential (primary) hypertension (principal)

== ENCOUNTER → 2024-10-26 | Outpatient (REF) | payer MEDICARE ==
[2024-10-26 15:16] LABS: BASO # 0.0 10^3/uL (0.0-0.2); BASO % 0.4 % (0.0-1.0); EOS # 0.1 10^3/uL (0.0-0.5); EOS % 1.4 % (0.0-3.0); LYMPH # 1.5 10^3/uL (1.5-5.0); LYMPH % 19.5 % (24.0-44.0); MONO # 0.5 10^3/uL (0.0-0.8); MONO % 6.7 % (2.0-8.0); NEUTROPHILS # 5.6 10^3/uL (1.5-8.5); NEUTROPHILS % 71.6 % (36.0-66.0); PLATELET COUNT, AUTOMATED 283 10^3/uL (150-450)
[2024-10-26 15:23] LABS: ALT/SGPT 19.0 U/L (7.0-40); AST/SGOT 24.0 U/L (<34); CALCIUM LEVEL 9.9 MG/DL (8.3-10.6); CARBON DIOXIDE LEVEL 26.0 MMOL/L (20-31); CHLORIDE LEVEL 104.0 MMOL/L (98-107); CHOLESTEROL LEVEL 237.0 MG/DL (<200); CHOLESTEROL RISK RATIO 3.64 (<5); CREATININE FOR GFR 0.8 MG/DL (0.55-1.30); GLOMERULAR FILTRATION RATE 81.2 (>45); LDL CHOLESTEROL 143.2 MG/DL (<100); NON-HDL-C 172.0 MG/DL; POTASSIUM SERUM 4.2 MMOL/L (3.5-5.1); SODIUM LEVEL 144.0 MMOL/L (136-145); TRIGLYCERIDES LEVEL 144.0 MG/DL (<150)
[2024-10-26 17:06] LABS: ESTIMATED AVERAGE GLUCOSE 108.0 MG/DL (60-110)
== END ==
LOC: M LAB REF 14:52
PROVIDERS: ATTEND Pediatrics
DX: E11.69 Type 2 diabetes mellitus with other specified complication (principal); R60.0 Localized edema; E78.00 Pure hypercholesterolemia, unspecified